=== PATIENT | female | born 1980 | race Caucasian/White ===

== ENCOUNTER 2019-02-12 19:36 | Inpatient (IN) | payer MEDICAID ==
[~2019-02-12] VITALS: Ht 160 cm; Wt 46.7 kg
[2019-02-13] MEDS ORDERED: LORazepam 2 MG TABLET PO PRN (00:45)
[2019-02-13] MEDS ORDERED: HALOPERIDOL 5 MG TABLET PO PRN (00:45)
[2019-02-13] MEDS ORDERED: ZOLPIDEM TARTRATE 10 MG TABLET PO PRN (00:45)
[2019-02-13 03:00] VITALS: BP 105/69
[2019-02-13] MEDS ORDERED: IBUPROFEN 400 MG TABLET PO PRN (05:15)
[2019-02-13] MEDS ORDERED: MAGNESIUM HYDROXIDE SUSPENSION 30 ML UDCUP PO PRN (05:15)
[2019-02-13] MEDS ORDERED: DOCUSATE SODIUM 100 MG CAPSULE PO PRN (05:15)
[2019-02-13] MEDS ORDERED: LOPERAMIDE HCL 2 MG CAPSULE PO PRN (05:15)
[2019-02-13] MEDS ORDERED: ALBUTEROL SULFATE HFA 90 MCG/PUFF 8 GM INHALER IH PRN (05:15)
[2019-02-13] MEDS ORDERED: ACETAMINOPHEN 325 MG TABLET PO PRN (05:15)
[2019-02-13] MEDS ORDERED: PETROLATUM,WHITE 28 GM JELLY TP PRN (05:15)
[2019-02-13] MEDS ORDERED: MAG HYDROX/AL HYDROX/SIMETH ES 30 ML SUSPENSION UDCUP PO PRN (05:15)
[2019-02-13] MEDS ORDERED: GuaiFENesin/D-METHORPHAN [SUGAR-FREE] 200-20MG/10 ML SYRUP UDCUP PO PRN (05:15)
[2019-02-13] MEDS ORDERED: ONDANSETRON HCL 4 MG TABLET PO PRN (05:15)
[2019-02-13] MEDS ORDERED: CloNIDine HCL 0.1 MG TABLET PO PRN (05:15)
[2019-02-13 16:42] VITALS: BP 116/60
[2019-02-13] MEDS: RisperiDONE 0.5 MG TABLET PO SCH (17:00)
[2019-02-14 06:09] VITALS: BP 103/64
[2019-02-14] MEDS: RisperiDONE 0.5 MG TABLET PO SCH ×2 (08:05→16:24)
[2019-02-14 16:06] VITALS: BP 100/82
[2019-02-15 06:14] VITALS: BP 106/72
[2019-02-15] MEDS: RisperiDONE 0.5 MG TABLET PO SCH ×2 (08:22→17:21)
[2019-02-15 08:25] VITALS: BP 123/79
[2019-02-15 08:43] LABS: APPEARANCE,URINE TURBID (CLEAR); GLUCOSE, URINE (UA) NEGATIVE (NEGATIVE); KETONES,URINE 15 mg/dL (NEGATIVE); NITRATE,URINE POSITIVE (NEGATIVE); PH,URINE 5.5 (5.0-8.0); PROTEIN,URINE POS 1+ (NEGATIVE); UROBILINOGEN,URINE 0.2 mg/dL (<=1.0)
[2019-02-15 08:46] LABS: AMPHET/METH SCREEN,URINE NEGATIVE (NEGATIVE); BARBITURATE SCREEN, URINE NEGATIVE (NEGATIVE); BENZODIAZEPINES SCREEN,URINE NEGATIVE (NEGATIVE); CANNABINOID SCREEN,URINE NEGATIVE (NEGATIVE); COCAINE SCREEN,URINE NEGATIVE (NEGATIVE); METHADONE SCREEN, URINE NEGATIVE (NEGATIVE); OPIATE SCREEN,URINE NEGATIVE (NEGATIVE)
[2019-02-15 08:47] LABS: PHENCYCLIDINE SCREEN,URINE NEGATIVE (NEGATIVE)
[2019-02-15 08:56] LABS: ALANINE AMINOTRANSFERASE 13 U/L (12-78); ALBUMIN 3.9 g/dL (3.4-5.0); ALKALINE PHOSPHATASE 52 U/L (46-116); ANION GAP 12 mmol/L (8-16); ASPARTATE AMINOTRANSFERASE 6 U/L (15-37); BILIRUBIN,TOTAL 0.8 mg/dL (0.1-1.0); CALCIUM, TOTAL 9.5 mg/dL (8.8-10.5); CARBON DIOXIDE 24 mmol/L (22-29); CHLORIDE 101 mmol/L (98-107); CHOL/HDL RATIO 3.9 (3.9-5.7); CHOLESTEROL 186 mg/dL (131-200); GLOMERULAR FILTR. RATE CALC > 60 mL/min (>60); GLUCOSE,RANDOM 69 mg/dL (70-110); HDL CHOLESTEROL 48 mg/dL (40-60); LDL CHOL (CALC.) 120 mg/dL (0-130); POTASSIUM 4.2 mmol/L (3.5-5.1); SODIUM SERUM 137 mmol/L (136-145); THYROID STIMULATING HORMONE 1.27 uIU/mL (0.36-3.74); TOTAL PROTEIN, SERUM 7.3 g/dL (6.4-8.2); TRIGLYCERIDES 92 mg/dL (15-150); UREA NITROGEN, BLOOD 13 mg/dL (7-18)
[2019-02-15 09:01] LABS: BILIRUBIN,URINE PRELIM. POSITIVE (NEGATIVE); LEUKOCYTE ESTERASE ,URINE MODERATE (NEGATIVE); OCCULT BLOOD,URINE SMALL (NEGATIVE)
[2019-02-15 09:03] LABS: AMORPHOUS SEDIMENT,UR Moderate /LPF (None Seen); BACTERIA,URINE Many /HPF (None Seen); CALCIUM OXALATE CRYSTALS,UR Few /LPF (None Seen); SQUAMOUS EPITHELIAL CELL,UR Many /LPF (None Seen)
[2019-02-15 09:04] LABS: BASOPHILS % (AUTO) 0.8 % (0.0-2.0); EOSINOPHILS % (AUTO) 1.6 % (1.0-6.0); HEMATOCRIT 37.6 % (36-46); HEMOGLOBIN 12.4 g/dL (12.0-16.0); LYMPHOCYTES % (AUTO) 38.3 % (22.0-44.0); MEAN CORPUSCULAR HEMOGLOBIN 29.1 pg (26.0-34.0); MEAN CORPUSCULAR VOLUME 88 fL (80-100); MONOCYTES # (AUTO) 0.4 K/uL (0.1-1.0); MONOCYTES % (AUTO) 7.7 % (2.0-9.0); NEUTROPHILS # (AUTO) 2.6 K/uL (1.8-7.7); NEUTROPHILS % (AUTO) 51.6 % (40.0-70.0); PLATELET COUNT (AUTO) 170 K/uL (150-450); RED BLOOD CELL COUNT(AUTO) 4.27 MIL/uL (4.00-5.20); RED CELL DISTRIBUTION WIDTH 14.5 % (11.5-14.5)
[2019-02-15 16:39] VITALS: BP 105/66
[2019-02-15] MEDS: CIPROFLOXACIN HCL 500 MG TABLET PO SCH (17:21)
[2019-02-16] MEDS: RisperiDONE 0.5 MG TABLET PO SCH ×2 (08:28→16:33)
[2019-02-16] MEDS: CIPROFLOXACIN HCL 500 MG TABLET PO SCH ×2 (08:28→16:33)
[2019-02-16 08:30] LABS: BASOPHILS % (AUTO) 0.6 % (0.0-2.0); EOSINOPHILS % (AUTO) 1.9 % (1.0-6.0); HEMOGLOBIN 11.6 g/dL (12.0-16.0); LYMPHOCYTES # (AUTO) 1.1 K/uL (1.0-4.8); LYMPHOCYTES % (AUTO) 31.2 % (22.0-44.0); MEAN CORPUSCULAR HEMOGLOBIN 28.8 pg (26.0-34.0); MEAN CORPUSCULAR HGB CONC 33.2 G/dL (31.0-37.0); MEAN CORPUSCULAR VOLUME 87 fL (80-100); MONOCYTES # (AUTO) 0.3 K/uL (0.1-1.0); MONOCYTES % (AUTO) 8.7 % (2.0-9.0); NEUTROPHILS # (AUTO) 2.1 K/uL (1.8-7.7); NEUTROPHILS % (AUTO) 57.6 % (40.0-70.0); PLATELET COUNT (AUTO) 172 K/uL (150-450); RED BLOOD CELL COUNT(AUTO) 4.04 MIL/uL (4.00-5.20); RED CELL DISTRIBUTION WIDTH 14.4 % (11.5-14.5)
[2019-02-16 08:37] VITALS: BP 106/69
[2019-02-16 09:24] LABS: ALANINE AMINOTRANSFERASE 13 U/L (12-78); ALBUMIN 3.7 g/dL (3.4-5.0); ALKALINE PHOSPHATASE 47 U/L (46-116); ANION GAP 10 mmol/L (8-16); ASPARTATE AMINOTRANSFERASE 13 U/L (15-37); BILIRUBIN,TOTAL 0.7 mg/dL (0.1-1.0); CALCIUM, TOTAL 9.2 mg/dL (8.8-10.5); CARBON DIOXIDE 26 mmol/L (22-29); CHLORIDE 103 mmol/L (98-107); CHOLESTEROL 179 mg/dL (131-200); CREATININE 0.83 mg/dL (0.60-1.30); GLOMERULAR FILTR. RATE CALC > 60 mL/min (>60); GLUCOSE,RANDOM 70 mg/dL (70-110); HCG,QUANTITATIVE < 1 mIU/mL (0-6); HDL CHOLESTEROL 45 mg/dL (40-60); LDL CHOL (CALC.) 121 mg/dL (0-130); POTASSIUM 4.4 mmol/L (3.5-5.1); SODIUM SERUM 139 mmol/L (136-145); THYROID STIMULATING HORMONE 0.86 uIU/mL (0.36-3.74); TOTAL PROTEIN, SERUM 6.7 g/dL (6.4-8.2); TRIGLYCERIDES 63 mg/dL (15-150); UREA NITROGEN, BLOOD 14 mg/dL (7-18)
[2019-02-16] MEDS ORDERED: ACETAMINOPHEN 1000 MG/ISO-OSM 100 ML IV ONE (13:30)
[2019-02-16] MEDS ORDERED: KETAMINE HCL 50 MG/ML 10 ML VIAL ONE (13:30)
[2019-02-16 17:47] VITALS: BP 100/70
[2019-02-17 06:52] VITALS: BP 110/72
[2019-02-17 08:11] VITALS: BP 105/65
[2019-02-17] MEDS: CIPROFLOXACIN HCL 500 MG TABLET PO SCH ×2 (08:35→18:09)
[2019-02-17] MEDS: RisperiDONE 0.5 MG TABLET PO SCH ×2 (08:35→18:09)
[2019-02-17 17:31] VITALS: BP 94/57
[2019-02-18 06:57] VITALS: BP 99/72
[2019-02-18 08:21] VITALS: BP 105/58
[2019-02-18] MEDS: CIPROFLOXACIN HCL 500 MG TABLET PO SCH ×2 (09:00→16:49)
[2019-02-18] MEDS: RisperiDONE 0.5 MG TABLET PO SCH ×2 (09:00→16:49)
[2019-02-18 16:12] VITALS: BP 101/68
[2019-02-19 06:54] VITALS: BP 97/71
[2019-02-19 08:12] VITALS: BP 100/60
[2019-02-19] MEDS: CIPROFLOXACIN HCL 500 MG TABLET PO SCH (08:35)
[2019-02-19] MEDS: RisperiDONE 0.5 MG TABLET PO SCH (08:35)
[2019-02-19] MEDS ORDERED: RISP.5 PO (11:52)
[2019-02-19] MEDS ORDERED: CIPR-278 PO (14:35)
[2019-02-19] MEDS ORDERED: RISP1 PO (14:36)
[2019-02-19] MEDS ORDERED: RisperiDONE 1 MG TABLET PO SCH (17:00)
== END 2019-02-19 16:00 | disposition home or self-care (01) | DRG 751 ==
LOC: EMS 19:39 → B3A 02-13 01:28
PROVIDERS: ADMIT Psychiatry & Neurology Psychiatry; ATTEND Psychiatry & Neurology Psychiatry
DX: F29 Unspecified psychosis not due to a substance or known physiological condition (principal); R45.850 Homicidal ideations; F41.9 Anxiety disorder, unspecified; J30.9 Allergic rhinitis, unspecified; N39.0 Urinary tract infection, site not specified; R00.0 Tachycardia, unspecified; R09.81 Nasal congestion
CPT/HCPCS: 70551; 80307; 84443; 87086; J0131; J3490

== ENCOUNTER 2020-12-24 15:44 | Inpatient (IN) | payer MEDICAID, OTHER ==
[~2020-12-24] VITALS: Ht 165.1 cm; Wt 33.6 kg
[~2020-12-24 15:44] MED LIST: CIPR-278 PO; RISP1TAB48 PO
[2020-12-24 17:21] LABS: COVID AG,FIA SOURCE NASOPHARYNGEAL
[2020-12-24 17:53] LABS: APPEARANCE,URINE CLEAR (CLEAR); BILIRUBIN,URINE NEGATIVE (NEGATIVE); GLUCOSE, URINE (UA) NEGATIVE (NEGATIVE); KETONES,URINE TRACE mg/dL (NEGATIVE); LEUKOCYTE ESTERASE ,URINE SMALL (NEGATIVE); NITRATE,URINE NEGATIVE (NEGATIVE); OCCULT BLOOD,URINE NEGATIVE (NEGATIVE); PROTEIN,URINE TRACE (NEGATIVE); UROBILINOGEN,URINE 0.2 mg/dL (<=1.0)
[2020-12-24 17:59] LABS: AMPHET/METH SCREEN,URINE NEGATIVE (NEGATIVE); BARBITURATE SCREEN, URINE NEGATIVE (NEGATIVE); BENZODIAZEPINES SCREEN,URINE NEGATIVE (NEGATIVE); CANNABINOID SCREEN,URINE NEGATIVE (NEGATIVE); COCAINE SCREEN,URINE NEGATIVE (NEGATIVE); METHADONE SCREEN, URINE NEGATIVE (NEGATIVE); OPIATE SCREEN,URINE NEGATIVE (NEGATIVE)
[2020-12-24 18:02] LABS: PHENCYCLIDINE SCREEN,URINE NEGATIVE (NEGATIVE)
[2020-12-24 18:03] LABS: BASOPHILS % (AUTO) 0.6 % (0.0-2.0); EOSINOPHILS % (AUTO) 0.6 % (1.0-6.0); HEMATOCRIT 38.7 % (36-46); HEMOGLOBIN 12.6 g/dL (12.0-16.0); LYMPHOCYTES % (AUTO) 18.4 % (22.0-44.0); MEAN CORPUSCULAR HEMOGLOBIN 28.1 pg (26.0-34.0); MEAN CORPUSCULAR HGB CONC 32.5 G/dL (31.0-37.0); MEAN CORPUSCULAR VOLUME 86 fL (80-100); MONOCYTES # (AUTO) 0.3 K/uL (0.1-1.0); MONOCYTES % (AUTO) 5.7 % (2.0-9.0); NEUTROPHILS % (AUTO) 74.7 % (40.0-70.0); PLATELET COUNT (AUTO) 193 K/uL (150-450); RED BLOOD CELL COUNT(AUTO) 4.48 MIL/uL (4.00-5.20); RED CELL DISTRIBUTION WIDTH 17.3 % (11.5-14.5)
[2020-12-24 18:07] LABS: ANION GAP 9 mmol/L (8-16); CALCIUM, TOTAL 10.2 mg/dL (8.8-10.5); CARBON DIOXIDE 34 mmol/L (22-29); CHLORIDE 99 mmol/L (98-107); CREATININE 0.98 mg/dL (0.60-1.30); GLOMERULAR FILTR. RATE CALC > 60 mL/min (>60); GLUCOSE,RANDOM 104 mg/dL (70-110); POTASSIUM 4.6 mmol/L (3.5-5.1); SODIUM SERUM 142 mmol/L (136-145); UREA NITROGEN, BLOOD 52 mg/dL (7-18)
[2020-12-24 18:20] LABS: BACTERIA,URINE Few /HPF (None Seen); RBC,URINE 0-2 /HPF (0-2); SQUAMOUS EPITHELIAL CELL,UR Few /LPF (None Seen)
[2020-12-24 18:20] LABS: ALANINE AMINOTRANSFERASE 38 U/L (12-78); ALBUMIN 4.3 g/dL (3.4-5.0); ALKALINE PHOSPHATASE 43 U/L (46-116); ASPARTATE AMINOTRANSFERASE 28 U/L (15-37); BILIRUBIN,TOTAL 0.4 mg/dL (0.1-1.0); HCG,QUANTITATIVE < 1 mIU/mL (0-6); TOTAL PROTEIN, SERUM 7.6 g/dL (6.4-8.2)
[2020-12-24] MEDS ORDERED: ZOLPIDEM TARTRATE 10 MG TABLET PO PRN (18:45)
[2020-12-24] MEDS ORDERED: HALOPERIDOL 5 MG TABLET PO PRN (18:45)
[2020-12-24] MEDS ORDERED: LORazepam 2 MG TABLET PO PRN (18:45)
[2020-12-24] MEDS ORDERED: SULFAMETHOX/TRIMETH DS 800-160 MG/TABLET PO ONE (18:45)
[2020-12-24 20:15] VITALS: BP 94/54
[2020-12-25] MEDS ORDERED: ONDANSETRON HCL 4 MG TABLET PO PRN (07:45)
[2020-12-25] MEDS ORDERED: IBUPROFEN 400 MG TABLET PO PRN (07:45)
[2020-12-25] MEDS ORDERED: PETROLATUM,WHITE 28 GM JELLY TP PRN (07:45)
[2020-12-25] MEDS ORDERED: ALBUTEROL SULFATE HFA 90 MCG/PUFF 8 GM INHALER IH PRN (07:45)
[2020-12-25] MEDS ORDERED: CloNIDine HCL 0.1 MG TABLET PO PRN (07:45)
[2020-12-25] MEDS ORDERED: NICOTINE 14 MG/24 HOUR PATCH TD PRN (07:45)
[2020-12-25] MEDS ORDERED: LOPERAMIDE HCL 2 MG CAPSULE PO PRN (07:45)
[2020-12-25] MEDS ORDERED: MAG HYDROX/AL HYDROX/SIMETH ES 30 ML SUSPENSION UDCUP PO PRN (07:45)
[2020-12-25] MEDS ORDERED: DOCUSATE SODIUM 100 MG CAPSULE PO PRN (07:45)
[2020-12-25] MEDS ORDERED: MAGNESIUM HYDROXIDE SUSPENSION 30 ML UDCUP PO PRN (07:45)
[2020-12-25] MEDS ORDERED: GuaiFENesin/D-METHORPHAN [SUGAR-FREE] 200-20MG/10 ML SYRUP UDCUP PO PRN (07:45)
[2020-12-25] MEDS ORDERED: ACETAMINOPHEN 325 MG TABLET PO PRN (07:45)
[2020-12-25 08:08] LABS: CHOL/HDL RATIO 2.6 (3.9-5.7)
[2020-12-25] MEDS: CIPROFLOXACIN HCL 250 MG TABLET PO SCH (08:09)
[2020-12-25] MEDS: SULFAMETHOX/TRIMETH DS 800-160 MG/TABLET PO SCH ×2 (08:09→16:26)
[2020-12-25 16:00] VITALS: BP 90/67
[2020-12-25] MEDS: RisperiDONE 1 MG TABLET PO SCH (16:26)
[2020-12-26 07:47] LABS: MAGNESIUM 2.6 mg/dL (1.80-2.40); PHOSPHORUS 4.1 mg/dL (2.5-4.9)
[2020-12-26] MEDS ORDERED: MULTIVITAMINS WITH MINERALS, THERAPEUTIC TABLET PO SCH (09:00)
[2020-12-26] MEDS: SULFAMETHOX/TRIMETH DS 800-160 MG/TABLET PO SCH ×2 (09:23→16:22)
[2020-12-26 09:24] VITALS: BP 87/57
[2020-12-26] MEDS: RisperiDONE 1 MG TABLET PO SCH ×2 (09:24→16:22)
[2020-12-26] MEDS: CIPROFLOXACIN HCL 250 MG TABLET PO SCH (09:24)
[2020-12-26] MEDS: THIAMINE 100 MG TABLET PO SCH (09:24)
[2020-12-26 16:00] VITALS: BP 74/51
[2020-12-27] MEDS: CIPROFLOXACIN HCL 250 MG TABLET PO SCH (08:01)
[2020-12-27] MEDS: SULFAMETHOX/TRIMETH DS 800-160 MG/TABLET PO SCH ×2 (08:01→16:38)
[2020-12-27] MEDS: RisperiDONE 1 MG TABLET PO SCH ×2 (08:01→16:38)
[2020-12-27] MEDS: THIAMINE 100 MG TABLET PO SCH (08:01)
[2020-12-27] MEDS: MULTIVITAMINS WITH MINERALS, THERAPEUTIC TABLET PO SCH (08:02)
[2020-12-27] MEDS: SERTRALINE HCL 50 MG TABLET PO SCH (08:02)
[2020-12-27 09:00] VITALS: BP 97/68
[2020-12-27 16:30] VITALS: BP 90/52
[2020-12-28 08:45] VITALS: BP 91/51
[2020-12-28] MEDS: SULFAMETHOX/TRIMETH DS 800-160 MG/TABLET PO SCH ×2 (08:51→16:01)
[2020-12-28] MEDS: RisperiDONE 1 MG TABLET PO SCH ×2 (08:51→16:01)
[2020-12-28] MEDS: THIAMINE 100 MG TABLET PO SCH (08:51)
[2020-12-28] MEDS: MULTIVITAMINS WITH MINERALS, THERAPEUTIC TABLET PO SCH (08:51)
[2020-12-28] MEDS: SERTRALINE HCL 50 MG TABLET PO SCH (08:51)
[2020-12-28] MEDS: CIPROFLOXACIN HCL 250 MG TABLET PO SCH (08:51)
[2020-12-28 16:07] VITALS: BP 84/57
[2020-12-29 08:15] VITALS: BP 90/58
[2020-12-29] MEDS: RisperiDONE 1 MG TABLET PO SCH ×2 (09:10→16:06)
[2020-12-29] MEDS: SERTRALINE HCL 50 MG TABLET PO SCH (09:10)
[2020-12-29] MEDS: CIPROFLOXACIN HCL 250 MG TABLET PO SCH (09:10)
[2020-12-29] MEDS: SULFAMETHOX/TRIMETH DS 800-160 MG/TABLET PO SCH ×2 (09:10→16:06)
[2020-12-29] MEDS: THIAMINE 100 MG TABLET PO SCH (09:10)
[2020-12-29] MEDS: MULTIVITAMINS WITH MINERALS, THERAPEUTIC TABLET PO SCH (09:10)
[2020-12-29 16:00] VITALS: BP 88/71
[2020-12-30 08:00] VITALS: BP 101/60
[2020-12-30] MEDS: RisperiDONE 1 MG TABLET PO SCH ×2 (09:04→16:26)
[2020-12-30] MEDS: CIPROFLOXACIN HCL 250 MG TABLET PO SCH (09:04)
[2020-12-30] MEDS: SERTRALINE HCL 50 MG TABLET PO SCH (09:04)
[2020-12-30] MEDS: THIAMINE 100 MG TABLET PO SCH (09:04)
[2020-12-30] MEDS: MULTIVITAMINS WITH MINERALS, THERAPEUTIC TABLET PO SCH (09:04)
[2020-12-30 14:32] LABS: COVID AG,FIA SOURCE NASOPHARYNGEAL
[2020-12-30 16:00] VITALS: BP 110/69
[2020-12-31 08:37] VITALS: BP 139/106
[2020-12-31] MEDS: OMEGA-3/DHA/EPA/FISH OIL 1,000 MG CAPSULE PO SCH (08:47)
[2020-12-31] MEDS: THIAMINE 100 MG TABLET PO SCH (08:47)
[2020-12-31] MEDS: RisperiDONE 1 MG TABLET PO SCH ×2 (08:47→16:27)
[2020-12-31] MEDS: MULTIVITAMINS WITH MINERALS, THERAPEUTIC TABLET PO SCH (08:47)
[2020-12-31] MEDS: SERTRALINE HCL 50 MG TABLET PO SCH (08:47)
[2020-12-31] MEDS: FOLIC ACID 1 MG TABLET PO SCH (08:47)
[2020-12-31 16:00] VITALS: BP 99/58
[2021-01-01] MEDS: RisperiDONE 1 MG TABLET PO SCH ×2 (08:33→16:04)
[2021-01-01] MEDS: SERTRALINE HCL 50 MG TABLET PO SCH (08:33)
[2021-01-01] MEDS: THIAMINE 100 MG TABLET PO SCH (08:33)
[2021-01-01] MEDS: MULTIVITAMINS WITH MINERALS, THERAPEUTIC TABLET PO SCH (08:33)
[2021-01-01] MEDS: FOLIC ACID 1 MG TABLET PO SCH (08:33)
[2021-01-01] MEDS: OMEGA-3/DHA/EPA/FISH OIL 1,000 MG CAPSULE PO SCH (08:33)
[2021-01-01 09:00] VITALS: BP 85/57
[2021-01-01 12:50] VITALS: BP 88/61
[2021-01-01 16:52] VITALS: BP 90/75
[2021-01-02] MEDS: SERTRALINE HCL 50 MG TABLET PO SCH (09:57)
[2021-01-02] MEDS: FOLIC ACID 1 MG TABLET PO SCH (09:57)
[2021-01-02] MEDS: THIAMINE 100 MG TABLET PO SCH (09:57)
[2021-01-02] MEDS: OMEGA-3/DHA/EPA/FISH OIL 1,000 MG CAPSULE PO SCH (09:57)
[2021-01-02] MEDS: RisperiDONE 1 MG TABLET PO SCH ×2 (09:57→17:03)
[2021-01-02] MEDS: MULTIVITAMINS WITH MINERALS, THERAPEUTIC TABLET PO SCH (09:57)
[2021-01-02 16:00] VITALS: BP 87/64
[2021-01-03] MEDS: THIAMINE 100 MG TABLET PO SCH (08:47)
[2021-01-03] MEDS: OMEGA-3/DHA/EPA/FISH OIL 1,000 MG CAPSULE PO SCH (08:47)
[2021-01-03] MEDS: FOLIC ACID 1 MG TABLET PO SCH (08:47)
[2021-01-03] MEDS: SERTRALINE HCL 50 MG TABLET PO SCH (08:47)
[2021-01-03] MEDS: MULTIVITAMINS WITH MINERALS, THERAPEUTIC TABLET PO SCH (08:47)
[2021-01-03] MEDS: RisperiDONE 1 MG TABLET PO SCH ×2 (08:47→16:06)
[2021-01-03 16:00] VITALS: BP 100/50
[2021-01-04] MEDS: RisperiDONE 1 MG TABLET PO SCH ×2 (08:35→16:54)
[2021-01-04] MEDS: THIAMINE 100 MG TABLET PO SCH (08:35)
[2021-01-04] MEDS: MULTIVITAMINS WITH MINERALS, THERAPEUTIC TABLET PO SCH (08:35)
[2021-01-04] MEDS: SERTRALINE HCL 50 MG TABLET PO SCH (08:35)
[2021-01-04] MEDS: FOLIC ACID 1 MG TABLET PO SCH (08:35)
[2021-01-04] MEDS: OMEGA-3/DHA/EPA/FISH OIL 1,000 MG CAPSULE PO SCH (08:35)
[2021-01-04 16:00] VITALS: BP 97/72
[2021-01-05 08:02] VITALS: BP 118/94
[2021-01-05] MEDS: MULTIVITAMINS WITH MINERALS, THERAPEUTIC TABLET PO SCH (09:18)
[2021-01-05] MEDS: FOLIC ACID 1 MG TABLET PO SCH (09:18)
[2021-01-05] MEDS: OMEGA-3/DHA/EPA/FISH OIL 1,000 MG CAPSULE PO SCH (09:18)
[2021-01-05] MEDS: RisperiDONE 1 MG TABLET PO SCH ×2 (09:19→16:09)
[2021-01-05] MEDS: SERTRALINE HCL 50 MG TABLET PO SCH (09:19)
[2021-01-05 16:00] VITALS: BP 83/51
[2021-01-06 08:28] VITALS: BP 87/55
[2021-01-06] MEDS: OMEGA-3/DHA/EPA/FISH OIL 1,000 MG CAPSULE PO SCH (11:00)
[2021-01-06] MEDS: FOLIC ACID 1 MG TABLET PO SCH (11:00)
[2021-01-06] MEDS: RisperiDONE 1 MG TABLET PO SCH (11:00)
[2021-01-06] MEDS: SERTRALINE HCL 50 MG TABLET PO SCH ×2 (11:00→16:00)
[2021-01-06] MEDS: MULTIVITAMINS WITH MINERALS, THERAPEUTIC TABLET PO SCH (11:00)
[2021-01-06 14:06] LABS: COVID AG,FIA SOURCE NASOPHARYNGEAL
[2021-01-06] MEDS: RisperiDONE 2 MG TABLET PO SCH (16:00)
[2021-01-06 16:24] VITALS: BP 90/65
[2021-01-07 08:00] VITALS: BP 117/69
[2021-01-07] MEDS: FOLIC ACID 1 MG TABLET PO SCH (08:43)
[2021-01-07] MEDS: RisperiDONE 2 MG TABLET PO SCH ×2 (08:43→16:14)
[2021-01-07] MEDS: MULTIVITAMINS WITH MINERALS, THERAPEUTIC TABLET PO SCH (08:43)
[2021-01-07] MEDS: SERTRALINE HCL 50 MG TABLET PO SCH ×2 (08:43→16:14)
[2021-01-07] MEDS: OMEGA-3/DHA/EPA/FISH OIL 1,000 MG CAPSULE PO SCH (08:43)
[2021-01-07 16:07] VITALS: BP 90/78
[2021-01-08 07:47] LABS: ANION GAP 7 mmol/L (8-16); CARBON DIOXIDE 31 mmol/L (22-29); CHLORIDE 105 mmol/L (98-107); CREATININE 0.98 mg/dL (0.60-1.30); GLOMERULAR FILTR. RATE CALC > 60 mL/min (>60); GLUCOSE,RANDOM 81 mg/dL (70-110); POTASSIUM 4.6 mmol/L (3.5-5.1); SODIUM SERUM 143 mmol/L (136-145); UREA NITROGEN, BLOOD 26 mg/dL (7-18)
[2021-01-08 08:00] VITALS: BP 98/62
[2021-01-08] MEDS: SERTRALINE HCL 50 MG TABLET PO SCH ×2 (08:50→16:06)
[2021-01-08] MEDS: RisperiDONE 2 MG TABLET PO SCH ×2 (08:51→16:06)
[2021-01-08] MEDS: MULTIVITAMINS WITH MINERALS, THERAPEUTIC TABLET PO SCH (08:51)
[2021-01-08] MEDS: OMEGA-3/DHA/EPA/FISH OIL 1,000 MG CAPSULE PO SCH (08:51)
[2021-01-08] MEDS: FOLIC ACID 1 MG TABLET PO SCH (08:51)
[2021-01-08 16:00] VITALS: BP 80/51
[2021-01-09 08:00] VITALS: BP 95/57
[2021-01-09] MEDS: SERTRALINE HCL 50 MG TABLET PO SCH ×2 (09:36→16:52)
[2021-01-09] MEDS: FOLIC ACID 1 MG TABLET PO SCH (09:36)
[2021-01-09] MEDS: RisperiDONE 2 MG TABLET PO SCH ×2 (09:36→16:52)
[2021-01-09] MEDS: MULTIVITAMINS WITH MINERALS, THERAPEUTIC TABLET PO SCH (09:36)
[2021-01-09] MEDS: OMEGA-3/DHA/EPA/FISH OIL 1,000 MG CAPSULE PO SCH (09:36)
[2021-01-09 16:00] VITALS: BP 77/58
[2021-01-10 08:13] VITALS: BP 111/76
[2021-01-10] MEDS: OMEGA-3/DHA/EPA/FISH OIL 1,000 MG CAPSULE PO SCH (08:20)
[2021-01-10] MEDS: MULTIVITAMINS WITH MINERALS, THERAPEUTIC TABLET PO SCH (08:20)
[2021-01-10] MEDS: FOLIC ACID 1 MG TABLET PO SCH (08:20)
[2021-01-10] MEDS: SERTRALINE HCL 50 MG TABLET PO SCH ×2 (08:20→16:24)
[2021-01-10] MEDS: RisperiDONE 2 MG TABLET PO SCH ×2 (08:20→16:24)
[2021-01-10] MEDS: MEGESTROL ACETATE 400 MG/10 ML SUSPENSION UDCUP PO SCH (09:00)
[2021-01-11 08:21] VITALS: BP 129/91
[2021-01-11] MEDS: FOLIC ACID 1 MG TABLET PO SCH (08:24)
[2021-01-11] MEDS: RisperiDONE 2 MG TABLET PO SCH ×2 (08:24→16:13)
[2021-01-11] MEDS: SERTRALINE HCL 50 MG TABLET PO SCH ×2 (08:24→16:14)
[2021-01-11] MEDS: OMEGA-3/DHA/EPA/FISH OIL 1,000 MG CAPSULE PO SCH (08:24)
[2021-01-11] MEDS: MULTIVITAMINS WITH MINERALS, THERAPEUTIC TABLET PO SCH (08:24)
[2021-01-11] MEDS: MEGESTROL ACETATE 400 MG/10 ML SUSPENSION UDCUP PO SCH ×2 (08:25→09:00)
[2021-01-11 16:09] VITALS: BP 114/71
[2021-01-12 08:11] VITALS: BP 79/52
[2021-01-12] MEDS: MULTIVITAMINS WITH MINERALS, THERAPEUTIC TABLET PO SCH (08:45)
[2021-01-12] MEDS: RisperiDONE 2 MG TABLET PO SCH ×2 (08:45→16:09)
[2021-01-12] MEDS: OMEGA-3/DHA/EPA/FISH OIL 1,000 MG CAPSULE PO SCH (08:45)
[2021-01-12] MEDS: SERTRALINE HCL 50 MG TABLET PO SCH ×2 (08:45→16:09)
[2021-01-12] MEDS: FOLIC ACID 1 MG TABLET PO SCH (08:45)
[2021-01-12] MEDS: MEGESTROL ACETATE 400 MG/10 ML SUSPENSION UDCUP PO SCH (08:54)
[2021-01-12 15:49] LABS: BASOPHILS % (AUTO) 0.6 % (0.0-2.0); EOSINOPHILS % (AUTO) 0.2 % (1.0-6.0); HEMATOCRIT 45.7 % (36-46); HEMOGLOBIN 14.6 g/dL (12.0-16.0); LYMPHOCYTES # (AUTO) 1.7 K/uL (1.0-4.8); MEAN CORPUSCULAR HEMOGLOBIN 28.7 pg (26.0-34.0); MEAN CORPUSCULAR VOLUME 90 fL (80-100); MONOCYTES # (AUTO) 0.6 K/uL (0.1-1.0); MONOCYTES % (AUTO) 7.5 % (2.0-9.0); NEUTROPHILS # (AUTO) 5.1 K/uL (1.8-7.7); NEUTROPHILS % (AUTO) 68.7 % (40.0-70.0); RED CELL DISTRIBUTION WIDTH 18.8 % (11.5-14.5)
[2021-01-12 15:53] LABS: ANION GAP 11 mmol/L (8-16); CALCIUM, TOTAL 10.2 mg/dL (8.8-10.5); CARBON DIOXIDE 28 mmol/L (22-29); CHLORIDE 102 mmol/L (98-107); CREATININE 0.99 mg/dL (0.60-1.30); GLOMERULAR FILTR. RATE CALC > 60 mL/min (>60); GLUCOSE,RANDOM 105 mg/dL (70-110); POTASSIUM 4.2 mmol/L (3.5-5.1); SODIUM SERUM 141 mmol/L (136-145); UREA NITROGEN, BLOOD 27 mg/dL (7-18)
[2021-01-12 16:01] LABS: ALANINE AMINOTRANSFERASE 41 U/L (12-78); ALBUMIN 4.9 g/dL (3.4-5.0); ALKALINE PHOSPHATASE 52 U/L (46-116); ASPARTATE AMINOTRANSFERASE 24 U/L (15-37); BILIRUBIN,TOTAL 0.4 mg/dL (0.1-1.0); TOTAL PROTEIN, SERUM 8.4 g/dL (6.4-8.2)
[2021-01-12 16:07] VITALS: BP 126/67
[2021-01-12 16:30] LABS: PLATELET COUNT (AUTO) 163 K/uL (150-450)
[2021-01-13 08:00] VITALS: BP 98/56
[2021-01-13] MEDS: MEGESTROL ACETATE 400 MG/10 ML SUSPENSION UDCUP PO SCH (09:00)
[2021-01-13] MEDS: OMEGA-3/DHA/EPA/FISH OIL 1,000 MG CAPSULE PO SCH (09:04)
[2021-01-13] MEDS: SERTRALINE HCL 50 MG TABLET PO SCH ×2 (09:04→16:13)
[2021-01-13] MEDS: RisperiDONE 2 MG TABLET PO SCH ×2 (09:04→16:13)
[2021-01-13] MEDS: FOLIC ACID 1 MG TABLET PO SCH (09:04)
[2021-01-13] MEDS: MULTIVITAMINS WITH MINERALS, THERAPEUTIC TABLET PO SCH (09:04)
[2021-01-13 12:30] LABS: COVID AG,FIA SOURCE NASOPHARYNGEAL
[2021-01-13 16:00] VITALS: BP 95/58
[2021-01-14 00:12] VITALS: BP 96/64
[2021-01-14 08:00] VITALS: BP 101/48
[2021-01-14] MEDS: MEGESTROL ACETATE 400 MG/10 ML SUSPENSION UDCUP PO SCH (09:00)
[2021-01-14] MEDS: MULTIVITAMINS WITH MINERALS, THERAPEUTIC TABLET PO SCH (09:20)
[2021-01-14] MEDS: FOLIC ACID 1 MG TABLET PO SCH (09:21)
[2021-01-14] MEDS: SERTRALINE HCL 50 MG TABLET PO SCH ×2 (09:21→16:16)
[2021-01-14] MEDS: RisperiDONE 2 MG TABLET PO SCH ×2 (09:21→16:16)
[2021-01-14] MEDS: OMEGA-3/DHA/EPA/FISH OIL 1,000 MG CAPSULE PO SCH (09:21)
[2021-01-14 16:00] VITALS: BP 94/60
[2021-01-14] MEDS: OLANZapine 10 MG TABLET PO SCH (20:35)
[2021-01-15 08:29] VITALS: BP 86/62
[2021-01-15] MEDS: FOLIC ACID 1 MG TABLET PO SCH (09:00)
[2021-01-15] MEDS: RisperiDONE 2 MG TABLET PO SCH ×2 (09:00→16:07)
[2021-01-15] MEDS: SERTRALINE HCL 50 MG TABLET PO SCH ×2 (09:00→16:07)
[2021-01-15] MEDS: OMEGA-3/DHA/EPA/FISH OIL 1,000 MG CAPSULE PO SCH (09:00)
[2021-01-15] MEDS: MEGESTROL ACETATE 400 MG/10 ML SUSPENSION UDCUP PO SCH (09:00)
[2021-01-15] MEDS: MULTIVITAMINS WITH MINERALS, THERAPEUTIC TABLET PO SCH (09:00)
[2021-01-15 16:09] VITALS: BP 89/57
[2021-01-15] MEDS: OLANZapine 10 MG TABLET PO SCH (20:57)
[2021-01-16] MEDS: OMEGA-3/DHA/EPA/FISH OIL 1,000 MG CAPSULE PO SCH (09:00)
[2021-01-16] MEDS: RisperiDONE 2 MG TABLET PO SCH ×2 (09:00→18:18)
[2021-01-16] MEDS: MULTIVITAMINS WITH MINERALS, THERAPEUTIC TABLET PO SCH (09:00)
[2021-01-16] MEDS: FOLIC ACID 1 MG TABLET PO SCH (09:00)
[2021-01-16] MEDS: MEGESTROL ACETATE 400 MG/10 ML SUSPENSION UDCUP PO SCH (09:00)
[2021-01-16 09:39] VITALS: BP 80/53
[2021-01-16] MEDS: SERTRALINE HCL 100 MG TABLET PO SCH (18:18)
[2021-01-16] MEDS: OLANZapine 10 MG TABLET PO SCH (20:39)
[2021-01-17 08:49] VITALS: BP 106/57
[2021-01-17] MEDS: MEGESTROL ACETATE 400 MG/10 ML SUSPENSION UDCUP PO SCH (09:00)
[2021-01-17] MEDS: SERTRALINE HCL 100 MG TABLET PO SCH ×2 (11:01→16:39)
[2021-01-17] MEDS: RisperiDONE 2 MG TABLET PO SCH (11:01)
[2021-01-17] MEDS: OMEGA-3/DHA/EPA/FISH OIL 1,000 MG CAPSULE PO SCH (11:01)
[2021-01-17] MEDS: MULTIVITAMINS WITH MINERALS, THERAPEUTIC TABLET PO SCH (11:01)
[2021-01-17] MEDS: FOLIC ACID 1 MG TABLET PO SCH (11:02)
[2021-01-17] MEDS: RisperiDONE CONC 2 MG/2 ML SOLUTION ORAL.SYG PO SCH (20:43)
[2021-01-17] MEDS: OLANZapine 10 MG RAPDIS TABLET PO SCH (20:44)
[2021-01-18] MEDS: RisperiDONE CONC 2 MG/2 ML SOLUTION ORAL.SYG PO SCH ×2 (09:00→21:03)
[2021-01-18] MEDS: MEGESTROL ACETATE 400 MG/10 ML SUSPENSION UDCUP PO SCH (09:00)
[2021-01-18 09:41] VITALS: BP 105/69
[2021-01-18] MEDS: SERTRALINE HCL 100 MG TABLET PO SCH ×2 (12:28→16:35)
[2021-01-18] MEDS: FOLIC ACID 1 MG TABLET PO SCH (12:28)
[2021-01-18] MEDS: OMEGA-3/DHA/EPA/FISH OIL 1,000 MG CAPSULE PO SCH (12:28)
[2021-01-18] MEDS: MULTIVITAMINS WITH MINERALS, THERAPEUTIC TABLET PO SCH (12:28)
[2021-01-18 16:02] VITALS: BP 98/65
[2021-01-18] MEDS: OLANZapine 10 MG RAPDIS TABLET PO SCH (21:03)
[2021-01-19] MEDS: MEGESTROL ACETATE 400 MG/10 ML SUSPENSION UDCUP PO SCH (09:00)
[2021-01-19] MEDS: RisperiDONE CONC 2 MG/2 ML SOLUTION ORAL.SYG PO SCH ×2 (09:00→21:04)
[2021-01-19] MEDS: OMEGA-3/DHA/EPA/FISH OIL 1,000 MG CAPSULE PO SCH (09:33)
[2021-01-19] MEDS: MULTIVITAMINS WITH MINERALS, THERAPEUTIC TABLET PO SCH (09:33)
[2021-01-19] MEDS: FOLIC ACID 1 MG TABLET PO SCH (09:33)
[2021-01-19 09:34] VITALS: BP 91/62
[2021-01-19] MEDS: SERTRALINE HCL 100 MG TABLET PO SCH ×2 (09:36→16:33)
[2021-01-19 11:27] LABS: ANION GAP 11 mmol/L (8-16); CALCIUM, TOTAL 9.8 mg/dL (8.8-10.5); CARBON DIOXIDE 30 mmol/L (22-29); CHLORIDE 100 mmol/L (98-107); CREATININE 0.97 mg/dL (0.60-1.30); GLOMERULAR FILTR. RATE CALC > 60 mL/min (>60); GLUCOSE,RANDOM 91 mg/dL (70-110); PHOSPHORUS 3.6 mg/dL (2.5-4.9); POTASSIUM 3.8 mmol/L (3.5-5.1); SODIUM SERUM 141 mmol/L (136-145); UREA NITROGEN, BLOOD 21 mg/dL (7-18)
[2021-01-19 17:49] VITALS: BP 119/65
[2021-01-19] MEDS: OLANZapine 10 MG RAPDIS TABLET PO SCH (21:02)
[2021-01-20 08:00] VITALS: BP 90/60
[2021-01-20] MEDS: MEGESTROL ACETATE 400 MG/10 ML SUSPENSION UDCUP PO SCH (09:00)
[2021-01-20] MEDS: RisperiDONE CONC 2 MG/2 ML SOLUTION ORAL.SYG PO SCH (09:00)
[2021-01-20] MEDS: FOLIC ACID 1 MG TABLET PO SCH (09:16)
[2021-01-20] MEDS: SERTRALINE HCL 100 MG TABLET PO SCH ×2 (09:16→17:23)
[2021-01-20] MEDS: OMEGA-3/DHA/EPA/FISH OIL 1,000 MG CAPSULE PO SCH (09:16)
[2021-01-20] MEDS: MULTIVITAMINS WITH MINERALS, THERAPEUTIC TABLET PO SCH (09:16)
[2021-01-20 15:02] LABS: COVID AG,FIA SOURCE NASOPHARYNGEAL
[2021-01-20 16:00] VITALS: BP 105/71
[2021-01-20] MEDS: OLANZapine 10 MG RAPDIS TABLET PO SCH (21:21)
[2021-01-20] MEDS: RisperiDONE 2 MG TABLET PO SCH (21:21)
[2021-01-21 06:22] VITALS: BP 101/53
[2021-01-21 08:00] VITALS: BP 96/73
[2021-01-21] MEDS: MEGESTROL ACETATE 40 MG TABLET PO SCH ×3 (09:00→09:32)
[2021-01-21] MEDS: SERTRALINE HCL 100 MG TABLET PO SCH ×2 (09:07→16:39)
[2021-01-21] MEDS: FOLIC ACID 1 MG TABLET PO SCH (09:07)
[2021-01-21] MEDS: RisperiDONE 2 MG TABLET PO SCH ×2 (09:08→20:48)
[2021-01-21] MEDS: MULTIVITAMINS WITH MINERALS, THERAPEUTIC TABLET PO SCH (09:08)
[2021-01-21] MEDS: OMEGA-3/DHA/EPA/FISH OIL 1,000 MG CAPSULE PO SCH (09:08)
[2021-01-21] MEDS: LEVOFLOXACIN 750 MG TABLET PO SCH (13:20)
[2021-01-21 18:01] VITALS: BP 95/58
[2021-01-21] MEDS: OLANZapine 10 MG RAPDIS TABLET PO SCH (20:48)
[2021-01-22 05:58] LABS: BASOPHILS % (AUTO) 1.1 % (0.0-2.0); EOSINOPHILS % (AUTO) 1.2 % (1.0-6.0); HEMATOCRIT 38.4 % (36-46); HEMOGLOBIN 12.6 g/dL (12.0-16.0); LYMPHOCYTES % (AUTO) 35.2 % (22.0-44.0); MEAN CORPUSCULAR HEMOGLOBIN 29.5 pg (26.0-34.0); MEAN CORPUSCULAR HGB CONC 32.8 G/dL (31.0-37.0); MEAN CORPUSCULAR VOLUME 90 fL (80-100); MONOCYTES # (AUTO) 0.3 K/uL (0.1-1.0); MONOCYTES % (AUTO) 8.8 % (2.0-9.0); NEUTROPHILS # (AUTO) 1.5 K/uL (1.8-7.7); NEUTROPHILS % (AUTO) 53.7 % (40.0-70.0); PLATELET COUNT (AUTO) 133 K/uL (150-450); RED BLOOD CELL COUNT(AUTO) 4.26 MIL/uL (4.00-5.20); RED CELL DISTRIBUTION WIDTH 18.5 % (11.5-14.5)
[2021-01-22 06:44] LABS: ANION GAP 9 mmol/L (8-16); CALCIUM, TOTAL 9.8 mg/dL (8.8-10.5); CARBON DIOXIDE 29 mmol/L (22-29); CHLORIDE 103 mmol/L (98-107); CREATININE 0.93 mg/dL (0.60-1.30); GLOMERULAR FILTR. RATE CALC > 60 mL/min (>60); GLUCOSE,RANDOM 80 mg/dL (70-110); POTASSIUM 4.1 mmol/L (3.5-5.1); SODIUM SERUM 141 mmol/L (136-145); UREA NITROGEN, BLOOD 19 mg/dL (7-18)
[2021-01-22] MEDS: SERTRALINE HCL 100 MG TABLET PO SCH ×2 (08:24→16:49)
[2021-01-22] MEDS: OMEGA-3/DHA/EPA/FISH OIL 1,000 MG CAPSULE PO SCH (08:24)
[2021-01-22] MEDS: RisperiDONE 2 MG TABLET PO SCH ×2 (08:24→21:00)
[2021-01-22] MEDS: MULTIVITAMINS WITH MINERALS, THERAPEUTIC TABLET PO SCH (08:24)
[2021-01-22] MEDS: FOLIC ACID 1 MG TABLET PO SCH (08:24)
[2021-01-22] MEDS: MEGESTROL ACETATE 40 MG TABLET PO SCH (08:25)
[2021-01-22] MEDS: LEVOFLOXACIN 750 MG TABLET PO SCH (08:25)
[2021-01-22 09:26] VITALS: BP 90/56
[2021-01-22 16:17] VITALS: BP 117/71
[2021-01-22] MEDS: OLANZapine 10 MG RAPDIS TABLET PO SCH (21:00)
[2021-01-23 08:29] VITALS: BP 88/48
[2021-01-23] MEDS: LEVOFLOXACIN 750 MG TABLET PO SCH (10:54)
[2021-01-23] MEDS: MEGESTROL ACETATE 40 MG TABLET PO SCH (10:54)
[2021-01-23] MEDS: MULTIVITAMINS WITH MINERALS, THERAPEUTIC TABLET PO SCH (10:56)
[2021-01-23] MEDS: OMEGA-3/DHA/EPA/FISH OIL 1,000 MG CAPSULE PO SCH (10:56)
[2021-01-23] MEDS: SERTRALINE HCL 100 MG TABLET PO SCH ×2 (10:56→16:33)
[2021-01-23] MEDS: RisperiDONE 2 MG TABLET PO SCH ×2 (10:56→20:35)
[2021-01-23] MEDS: FOLIC ACID 1 MG TABLET PO SCH (10:56)
[2021-01-23 16:38] VITALS: BP 86/56
[2021-01-23] MEDS: OLANZapine 10 MG RAPDIS TABLET PO SCH (20:37)
[2021-01-24 08:00] VITALS: BP 136/61
[2021-01-24] MEDS: MEGESTROL ACETATE 40 MG TABLET PO SCH (10:14)
[2021-01-24] MEDS: MULTIVITAMINS WITH MINERALS, THERAPEUTIC TABLET PO SCH (10:15)
[2021-01-24] MEDS: SERTRALINE HCL 100 MG TABLET PO SCH ×2 (10:15→17:06)
[2021-01-24] MEDS: RisperiDONE 2 MG TABLET PO SCH ×2 (10:15→21:25)
[2021-01-24] MEDS: OMEGA-3/DHA/EPA/FISH OIL 1,000 MG CAPSULE PO SCH (10:15)
[2021-01-24] MEDS: LEVOFLOXACIN 750 MG TABLET PO SCH (10:15)
[2021-01-24] MEDS: FOLIC ACID 1 MG TABLET PO SCH (10:15)
[2021-01-24 16:07] VITALS: BP 96/52
[2021-01-24] MEDS: OLANZapine 10 MG RAPDIS TABLET PO SCH (21:00)
[2021-01-25 08:00] VITALS: BP 105/74
[2021-01-25] MEDS: LEVOFLOXACIN 750 MG TABLET PO SCH (09:29)
[2021-01-25] MEDS: FOLIC ACID 1 MG TABLET PO SCH (09:29)
[2021-01-25] MEDS: OMEGA-3/DHA/EPA/FISH OIL 1,000 MG CAPSULE PO SCH (09:29)
[2021-01-25] MEDS: RisperiDONE 2 MG TABLET PO SCH ×2 (09:29→20:01)
[2021-01-25] MEDS: MULTIVITAMINS WITH MINERALS, THERAPEUTIC TABLET PO SCH (09:29)
[2021-01-25] MEDS: SERTRALINE HCL 100 MG TABLET PO SCH ×2 (09:29→16:16)
[2021-01-25] MEDS: MEGESTROL ACETATE 40 MG TABLET PO SCH (09:29)
[2021-01-25 16:00] VITALS: BP 104/69
[2021-01-25] MEDS: OLANZapine 10 MG RAPDIS TABLET PO SCH (20:03)
[2021-01-26 08:23] VITALS: BP 114/70
[2021-01-26] MEDS: MEGESTROL ACETATE 40 MG TABLET PO SCH (09:40)
[2021-01-26] MEDS: SERTRALINE HCL 100 MG TABLET PO SCH ×2 (09:41→16:51)
[2021-01-26] MEDS: FOLIC ACID 1 MG TABLET PO SCH (09:41)
[2021-01-26] MEDS: LEVOFLOXACIN 750 MG TABLET PO SCH (09:41)
[2021-01-26] MEDS: MULTIVITAMINS WITH MINERALS, THERAPEUTIC TABLET PO SCH (09:41)
[2021-01-26] MEDS: OMEGA-3/DHA/EPA/FISH OIL 1,000 MG CAPSULE PO SCH (09:41)
[2021-01-26] MEDS: RisperiDONE 2 MG TABLET PO SCH ×2 (09:41→21:51)
[2021-01-26 16:00] VITALS: BP 87/51
[2021-01-26] MEDS: OLANZapine 10 MG RAPDIS TABLET PO SCH (21:00)
[2021-01-27 08:00] VITALS: BP 97/55
[2021-01-27] MEDS: MEGESTROL ACETATE 40 MG TABLET PO SCH (09:21)
[2021-01-27] MEDS: LEVOFLOXACIN 750 MG TABLET PO SCH (09:21)
[2021-01-27] MEDS: RisperiDONE 2 MG TABLET PO SCH ×2 (09:21→21:00)
[2021-01-27] MEDS: OMEGA-3/DHA/EPA/FISH OIL 1,000 MG CAPSULE PO SCH (09:21)
[2021-01-27] MEDS: MULTIVITAMINS WITH MINERALS, THERAPEUTIC TABLET PO SCH (09:21)
[2021-01-27] MEDS: SERTRALINE HCL 100 MG TABLET PO SCH ×2 (09:21→16:59)
[2021-01-27] MEDS: FOLIC ACID 1 MG TABLET PO SCH (09:21)
[2021-01-27 14:56] LABS: COVID AG,FIA SOURCE NASOPHARYNGEAL
[2021-01-27 16:00] VITALS: BP 73/52
[2021-01-27] MEDS: OLANZapine 10 MG RAPDIS TABLET PO SCH (21:00)
[2021-01-28 07:04] LABS: MAGNESIUM 2.3 mg/dL (1.80-2.40); PHOSPHORUS 3.2 mg/dL (2.5-4.9)
[2021-01-28 08:09] VITALS: BP 116/78
[2021-01-28] MEDS: OMEGA-3/DHA/EPA/FISH OIL 1,000 MG CAPSULE PO SCH (08:31)
[2021-01-28] MEDS: FOLIC ACID 1 MG TABLET PO SCH (08:32)
[2021-01-28] MEDS: SERTRALINE HCL 100 MG TABLET PO SCH (08:32)
[2021-01-28] MEDS: RisperiDONE 2 MG TABLET PO SCH (08:32)
[2021-01-28] MEDS: MULTIVITAMINS WITH MINERALS, THERAPEUTIC TABLET PO SCH (08:32)
[2021-01-28] MEDS: MEGESTROL ACETATE 40 MG TABLET PO SCH (08:34)
[2021-01-28] MEDS: LEVOFLOXACIN 750 MG TABLET PO SCH (08:35)
[2021-01-28] MEDS ORDERED: OLAN10TA3 PO (13:14)
[2021-01-28] MEDS ORDERED: OMEG-135 PO (13:14)
[2021-01-28] MEDS ORDERED: MEGE40TA8 PO (13:14)
[2021-01-28] MEDS ORDERED: FOLI-130 PO (13:14)
[2021-01-28] MEDS ORDERED: MULT-1239 PO (13:14)
[2021-01-28] MEDS ORDERED: LEVO750T68 PO (13:14)
[2021-01-28] MEDS ORDERED: SERT-162 PO (13:14)
== END 2021-01-28 14:30 | disposition home or self-care (01) | DRG 750 ==
LOC: EMS 15:44 → 3EI 19:00
PROVIDERS: ADMIT Psychiatry & Neurology Child & Adolescent Psychiatry; ATTEND Psychiatry & Neurology Child & Adolescent Psychiatry
DX: F20.0 Paranoid schizophrenia (principal); N39.0 Urinary tract infection, site not specified; E43 Unspecified severe protein-calorie malnutrition; I95.9 Hypotension, unspecified; Z68.1 Body mass index [BMI] 19.9 or less, adult; Z88.0 Allergy status to penicillin; Z59.0 Homelessness; Z91.19 Patient's noncompliance with other medical treatment and regimen
CPT/HCPCS: 83735; 84100; 87086; 87426; 99285; A9575; G0480

== ENCOUNTER 2021-10-19 12:57 | Inpatient (IN) | payer MEDICAID, OTHER ==
[~2021-10-19] VITALS: Ht 167.6 cm; Wt 48.0 kg
[~2021-10-19 12:57] MED LIST changes: -CIPR-278 PO; +FOLI-130 PO; +LEVO750T68 PO; +MEGE40TA8 PO; +MULT-1239 PO; +OLAN10TA74 PO; +OMEG-135 PO; +SERT-162 PO
[2021-10-19] MEDS ORDERED: SODIUM CHLORIDE 0.9% 1,000 ML IV ONE (13:45)
[2021-10-19 13:50] LABS: BASOPHILS % (AUTO) 0.2 % (0.0-2.0); EOSINOPHILS % (AUTO) 0.1 % (1.0-6.0); HEMATOCRIT 42.7 % (36-46); LYMPHOCYTES # (AUTO) 0.4 K/uL (1.0-4.8); LYMPHOCYTES % (AUTO) 6.7 % (22.0-44.0); MEAN CORPUSCULAR HEMOGLOBIN 28.1 pg (26.0-34.0); MEAN CORPUSCULAR HGB CONC 32.9 G/dL (31.0-37.0); MEAN CORPUSCULAR VOLUME 86 fL (80-100); MONOCYTES # (AUTO) 0.2 K/uL (0.1-1.0); MONOCYTES % (AUTO) 3.7 % (2.0-9.0); NEUTROPHILS # (AUTO) 4.9 K/uL (1.8-7.7); PLATELET COUNT (AUTO) 166 K/uL (150-450); RED BLOOD CELL COUNT(AUTO) 4.99 MIL/uL (4.00-5.20); RED CELL DISTRIBUTION WIDTH 15.5 % (11.5-14.5)
[2021-10-19 13:56] LABS: NEUTROPHILS % (AUTO) 89.3 % (40.0-70.0)
[2021-10-19 14:00] LABS: ANION GAP 20 mmol/L (8-16); CARBON DIOXIDE 19 mmol/L (22-29); CHLORIDE 103 mmol/L (98-107); CREATININE 1.61 mg/dL (0.60-1.30); GLOMERULAR FILTR. RATE CALC 35 mL/min (>60); GLUCOSE,RANDOM 154 mg/dL (70-110); POTASSIUM 3.8 mmol/L (3.5-5.1); SODIUM SERUM 142 mmol/L (136-145); UREA NITROGEN, BLOOD 31 mg/dL (7-18)
[2021-10-19 14:07] LABS: ALANINE AMINOTRANSFERASE 37 U/L (12-78); ALBUMIN 4.4 g/dL (3.4-5.0); ALKALINE PHOSPHATASE 71 U/L (46-116); ASPARTATE AMINOTRANSFERASE 45 U/L (15-37); BILIRUBIN,TOTAL 1.5 mg/dL (0.1-1.0); TOTAL PROTEIN, SERUM 7.8 g/dL (6.4-8.2)
[2021-10-19 14:09] LABS: ACETAMINOPHEN < 2 mcg/mL (10-30)
[2021-10-19 14:22] LABS: SALICYLATE 1.9 mg/dL (2.8-20.0)
[2021-10-19 15:36] LABS: CALCIUM, TOTAL 8.4 mg/dL (8.8-10.5); CREATININE 1.28 mg/dL (0.60-1.30); POTASSIUM 3.8 mmol/L (3.5-5.1)
[2021-10-19 17:08] LABS: AMPHET/METH SCREEN,URINE NEGATIVE (NEGATIVE); BARBITURATE SCREEN, URINE NEGATIVE (NEGATIVE); BENZODIAZEPINES SCREEN,URINE NEGATIVE (NEGATIVE); CANNABINOID SCREEN,URINE NEGATIVE (NEGATIVE); COCAINE SCREEN,URINE NEGATIVE (NEGATIVE); METHADONE SCREEN, URINE NEGATIVE (NEGATIVE); OPIATE SCREEN,URINE NEGATIVE (NEGATIVE)
[2021-10-19 17:10] LABS: PHENCYCLIDINE SCREEN,URINE NEGATIVE (NEGATIVE)
[2021-10-19 17:11] LABS: APPEARANCE,URINE CLOUDY (CLEAR); BILIRUBIN,URINE NEGATIVE (NEGATIVE); GLUCOSE, URINE (UA) NEGATIVE (NEGATIVE); KETONES,URINE 40 mg/dL (NEGATIVE); LEUKOCYTE ESTERASE ,URINE MODERATE (NEGATIVE); NITRATE,URINE NEGATIVE (NEGATIVE); OCCULT BLOOD,URINE TRACE (NEGATIVE); PH,URINE 5.5 (5.0-8.0); PROTEIN,URINE POS 1+ (NEGATIVE)
[2021-10-19 17:19] LABS: BACTERIA,URINE Few /HPF (None Seen); RBC,URINE 0-2 /HPF (0-2); SQUAMOUS EPITHELIAL CELL,UR Few /LPF (None Seen)
[2021-10-19] MEDS ORDERED: NITROFURANTOIN/NITROFURAN MAC 100 MG CAPSULE [MACROBID] PO ONE (17:30)
[2021-10-19] MEDS ORDERED: LORazepam 2 MG TABLET PO PRN (19:00)
[2021-10-19] MEDS ORDERED: OLANZapine 5 MG RAPDIS TABLET PO PRN (19:00)
[2021-10-19 20:58] LABS: CALCIUM, TOTAL 8.9 mg/dL (8.8-10.5); CREATININE 1.19 mg/dL (0.60-1.30); POTASSIUM 4.2 mmol/L (3.5-5.1)
[2021-10-19 21:28] LABS: COVID AG,FIA SOURCE NASOPHARYNGEAL
[2021-10-19] MEDS: ZOLPIDEM TARTRATE 10 MG TABLET PO PRN (23:21)
[2021-10-20 01:38] LABS: CHOL/HDL RATIO 5.3 (3.9-5.7)
[2021-10-20] MEDS ORDERED: SODIUM CHLORIDE 0.9% 1,000 ML ONE ×2 (05:36→06:13)
[2021-10-20] MEDS: ZOLPIDEM TARTRATE 10 MG TABLET PO PRN (06:33)
[2021-10-20] MEDS ORDERED: SODIUM CHLORIDE 0.9% 1,000 ML IV ONE (08:45)
[2021-10-21 08:35] VITALS: BP 106/61
[2021-10-21 16:00] VITALS: BP 104/70
[2021-10-21] MEDS ORDERED: ALBUTEROL SULFATE HFA 90 MCG/PUFF 8 GM INHALER IH PRN (16:00)
[2021-10-21] MEDS ORDERED: MAGNESIUM HYDROXIDE SUSPENSION 30 ML UDCUP PO PRN (16:00)
[2021-10-21] MEDS ORDERED: ACETAMINOPHEN 325 MG TABLET PO PRN (16:00)
[2021-10-21] MEDS ORDERED: PETROLATUM,WHITE 28 GM JELLY TP PRN (16:00)
[2021-10-21] MEDS ORDERED: CloNIDine HCL 0.1 MG TABLET PO PRN (16:00)
[2021-10-21] MEDS ORDERED: LOPERAMIDE HCL 2 MG CAPSULE PO PRN (16:00)
[2021-10-21] MEDS ORDERED: NICOTINE 14 MG/24 HOUR PATCH TD PRN (16:00)
[2021-10-21] MEDS ORDERED: ONDANSETRON HCL 4 MG TABLET PO PRN (16:00)
[2021-10-21] MEDS ORDERED: IBUPROFEN 400 MG TABLET PO PRN (16:00)
[2021-10-21] MEDS ORDERED: DOCUSATE SODIUM 100 MG CAPSULE PO PRN (16:00)
[2021-10-21] MEDS ORDERED: MAG HYDROX/AL HYDROX/SIMETH ES 30 ML SUSPENSION UDCUP PO PRN (16:00)
[2021-10-21] MEDS ORDERED: GuaiFENesin/D-METHORPHAN [SUGAR-FREE] 200-20MG/10 ML SYRUP UDCUP PO PRN (16:00)
[2021-10-21] MEDS: SERTRALINE HCL 100 MG TABLET PO SCH (16:06)
[2021-10-21 20:00] VITALS: BP 104/70
[2021-10-21] MEDS: RisperiDONE 1 MG TABLET PO SCH (20:08)
[2021-10-21] MEDS: OLANZapine 10 MG TABLET PO SCH (20:08)
[2021-10-22] MEDS: CEPHALEXIN MONOHYDRATE 500 MG CAPSULE PO SCH ×3 (08:37→16:06)
[2021-10-22] MEDS: RisperiDONE 1 MG TABLET PO SCH ×2 (08:38→20:11)
[2021-10-22] MEDS: SERTRALINE HCL 100 MG TABLET PO SCH ×2 (08:38→16:06)
[2021-10-22 08:40] VITALS: BP 119/60
[2021-10-22 16:41] VITALS: BP 90/62
[2021-10-22] MEDS: OLANZapine 10 MG TABLET PO SCH (20:11)
[2021-10-23 08:49] VITALS: BP 90/51
[2021-10-23] MEDS: RisperiDONE 1 MG TABLET PO SCH ×2 (11:15→20:16)
[2021-10-23] MEDS: CEPHALEXIN MONOHYDRATE 500 MG CAPSULE PO SCH ×3 (11:16→16:13)
[2021-10-23] MEDS: SERTRALINE HCL 100 MG TABLET PO SCH ×2 (11:16→16:13)
[2021-10-23 17:16] VITALS: BP 97/65
[2021-10-23] MEDS: OLANZapine 10 MG TABLET PO SCH (20:16)
[2021-10-24] MEDS: CEPHALEXIN MONOHYDRATE 500 MG CAPSULE PO SCH ×3 (08:44→16:21)
[2021-10-24] MEDS: SERTRALINE HCL 100 MG TABLET PO SCH ×2 (08:44→16:21)
[2021-10-24] MEDS: RisperiDONE 1 MG TABLET PO SCH ×3 (08:44→20:23)
[2021-10-24 08:55] VITALS: BP 93/60
[2021-10-24 16:38] VITALS: BP 90/68
[2021-10-24] MEDS: OLANZapine 10 MG TABLET PO SCH ×2 (20:19→20:23)
[2021-10-25 08:52] LABS: COVID AG,FIA SOURCE NASOPHARYNGEAL
[2021-10-25] MEDS: CEPHALEXIN MONOHYDRATE 500 MG CAPSULE PO SCH ×3 (09:02→16:32)
[2021-10-25] MEDS: RisperiDONE 1 MG TABLET PO SCH (09:02)
[2021-10-25] MEDS: SERTRALINE HCL 100 MG TABLET PO SCH ×2 (09:02→16:32)
[2021-10-25 09:34] VITALS: BP 108/72
[2021-10-25 16:21] VITALS: BP 110/58
[2021-10-25] MEDS: OLANZapine 10 MG RAPDIS TABLET PO SCH (21:00)
[2021-10-25] MEDS: RisperiDONE CONC 1 MG/ML SOLUTION ORAL.SYG PO SCH (21:00)
[2021-10-26] MEDS: CEPHALEXIN MONOHYDRATE 500 MG CAPSULE PO SCH ×3 (08:30→16:03)
[2021-10-26] MEDS: SERTRALINE HCL 100 MG TABLET PO SCH ×2 (08:30→16:03)
[2021-10-26] MEDS: RisperiDONE CONC 1 MG/ML SOLUTION ORAL.SYG PO SCH ×2 (08:31→08:41)
[2021-10-26] MEDS: RisperiDONE 1 MG TABLET PO SCH ×2 (09:54→20:15)
[2021-10-26 11:35] VITALS: BP 97/62
[2021-10-26 17:00] VITALS: BP 90/64
[2021-10-26] MEDS: OLANZapine 10 MG RAPDIS TABLET PO SCH (20:15)
[2021-10-27] MEDS: RisperiDONE 1 MG TABLET PO SCH ×2 (09:00→20:42)
[2021-10-27] MEDS: SERTRALINE HCL 100 MG TABLET PO SCH ×2 (09:00→16:59)
[2021-10-27 10:22] VITALS: BP 126/74
[2021-10-27 16:35] VITALS: BP 104/74
[2021-10-27] MEDS: OLANZapine 10 MG RAPDIS TABLET PO SCH (20:29)
[2021-10-28] MEDS: RisperiDONE 1 MG TABLET PO SCH ×2 (08:56→21:00)
[2021-10-28] MEDS: SERTRALINE HCL 100 MG TABLET PO SCH ×2 (08:56→16:28)
[2021-10-28 10:53] VITALS: BP 90/68
[2021-10-28 16:22] VITALS: BP 119/70
[2021-10-28] MEDS: OLANZapine 10 MG RAPDIS TABLET PO SCH (21:00)
[2021-10-29 08:00] VITALS: BP 87/59
[2021-10-29] MEDS: SERTRALINE HCL 100 MG TABLET PO SCH ×2 (10:13→17:11)
[2021-10-29] MEDS: RisperiDONE 1 MG TABLET PO SCH ×2 (10:13→20:55)
[2021-10-29 16:18] VITALS: BP 100/68
[2021-10-29] MEDS: OLANZapine 10 MG RAPDIS TABLET PO SCH (20:58)
[2021-10-30] MEDS: SERTRALINE HCL 100 MG TABLET PO SCH ×2 (09:36→16:51)
[2021-10-30 09:37] VITALS: BP 92/54
[2021-10-30] MEDS: RisperiDONE 1 MG TABLET PO SCH ×2 (09:37→21:00)
[2021-10-30 16:18] VITALS: BP 102/71
[2021-10-30] MEDS: OLANZapine 10 MG RAPDIS TABLET PO SCH (21:00)
[2021-10-31] MEDS: SERTRALINE HCL 100 MG TABLET PO SCH ×2 (08:38→17:00)
[2021-10-31] MEDS: RisperiDONE 1 MG TABLET PO SCH ×2 (08:38→21:00)
[2021-10-31 09:38] VITALS: BP 98/59
[2021-10-31 16:31] VITALS: BP 96/60
[2021-10-31] MEDS: OLANZapine 10 MG RAPDIS TABLET PO SCH (21:00)
[2021-11-01] MEDS: SERTRALINE HCL 100 MG TABLET PO SCH ×2 (08:19→16:30)
[2021-11-01] MEDS: RisperiDONE 1 MG TABLET PO SCH ×2 (08:19→20:30)
[2021-11-01 09:34] VITALS: BP 93/63
[2021-11-01 10:20] LABS: COVID AG,FIA SOURCE NASOPHARYNGEAL
[2021-11-01 16:00] VITALS: BP 92/60
[2021-11-01] MEDS: OLANZapine 10 MG RAPDIS TABLET PO SCH (20:30)
[2021-11-02] MEDS: RisperiDONE 1 MG TABLET PO SCH ×2 (08:55→20:47)
[2021-11-02] MEDS: SERTRALINE HCL 100 MG TABLET PO SCH ×2 (08:55→16:52)
[2021-11-02 09:07] VITALS: BP 105/63
[2021-11-02 16:25] VITALS: BP 91/60
[2021-11-02] MEDS: OLANZapine 10 MG RAPDIS TABLET PO SCH (20:47)
[2021-11-03 07:37] LABS: PHOSPHORUS 3.8 mg/dL (2.5-4.9); SODIUM SERUM 147 mmol/L (136-145)
[2021-11-03 07:46] LABS: POTASSIUM 2.2 mmol/L (3.5-5.1)
[2021-11-03 08:25] LABS: ANION GAP 4 mmol/L (8-16); CARBON DIOXIDE 34 mmol/L (22-29); CHLORIDE 109 mmol/L (98-107); CREATININE 0.85 mg/dL (0.60-1.30); GLOMERULAR FILTR. RATE CALC > 60 mL/min (>60); GLUCOSE,RANDOM 77 mg/dL (70-110); UREA NITROGEN, BLOOD 25 mg/dL (7-18)
[2021-11-03] MEDS ORDERED: POTASSIUM CHLORIDE 20 MEQ ER TABLET PO ONE ×2 (09:15→16:00)
[2021-11-03] MEDS: RisperiDONE 1 MG TABLET PO SCH ×2 (09:56→20:55)
[2021-11-03] MEDS: MULTIVITAMINS WITH MINERALS, THERAPEUTIC TABLET PO SCH (09:56)
[2021-11-03] MEDS: THIAMINE 100 MG TABLET PO SCH (09:57)
[2021-11-03] MEDS: SERTRALINE HCL 100 MG TABLET PO SCH ×2 (09:57→16:17)
[2021-11-03 15:43] LABS: ANION GAP 5 mmol/L (8-16); CALCIUM, TOTAL 9.3 mg/dL (8.8-10.5); CARBON DIOXIDE 33 mmol/L (22-29); CHLORIDE 109 mmol/L (98-107); GLOMERULAR FILTR. RATE CALC > 60 mL/min (>60); GLUCOSE,RANDOM 90 mg/dL (70-110); SODIUM SERUM 147 mmol/L (136-145); UREA NITROGEN, BLOOD 26 mg/dL (7-18)
[2021-11-03 15:45] LABS: POTASSIUM 2.8 mmol/L (3.5-5.1)
[2021-11-03 16:19] VITALS: BP 85/58
[2021-11-03] MEDS: OLANZapine 10 MG RAPDIS TABLET PO SCH (20:55)
[2021-11-04 08:00] VITALS: BP 99/55
[2021-11-04] MEDS: RisperiDONE 1 MG TABLET PO SCH ×2 (08:53→21:00)
[2021-11-04] MEDS: THIAMINE 100 MG TABLET PO SCH (08:53)
[2021-11-04] MEDS: MULTIVITAMINS WITH MINERALS, THERAPEUTIC TABLET PO SCH (08:53)
[2021-11-04] MEDS: SERTRALINE HCL 100 MG TABLET PO SCH ×2 (08:53→16:40)
[2021-11-04 16:39] VITALS: BP 92/68
[2021-11-04] MEDS: OLANZapine 10 MG RAPDIS TABLET PO SCH (21:00)
[2021-11-05 08:07] VITALS: BP 92/61
[2021-11-05] MEDS: RisperiDONE 1 MG TABLET PO SCH ×2 (10:08→20:57)
[2021-11-05] MEDS: SERTRALINE HCL 100 MG TABLET PO SCH ×2 (10:08→16:33)
[2021-11-05] MEDS: MULTIVITAMINS WITH MINERALS, THERAPEUTIC TABLET PO SCH (10:08)
[2021-11-05] MEDS: THIAMINE 100 MG TABLET PO SCH (10:08)
[2021-11-05 16:00] VITALS: BP 91/55
[2021-11-05] MEDS: OLANZapine 10 MG RAPDIS TABLET PO SCH (20:59)
[2021-11-06 08:12] VITALS: BP 102/53
[2021-11-06] MEDS: RisperiDONE 1 MG TABLET PO SCH ×2 (10:47→20:39)
[2021-11-06] MEDS: SERTRALINE HCL 100 MG TABLET PO SCH ×2 (10:47→16:50)
[2021-11-06] MEDS: THIAMINE 100 MG TABLET PO SCH (10:47)
[2021-11-06] MEDS: MULTIVITAMINS WITH MINERALS, THERAPEUTIC TABLET PO SCH (10:47)
[2021-11-06 16:40] VITALS: BP 99/57
[2021-11-06] MEDS: OLANZapine 10 MG RAPDIS TABLET PO SCH (20:39)
[2021-11-07] MEDS: THIAMINE 100 MG TABLET PO SCH (08:35)
[2021-11-07] MEDS: SERTRALINE HCL 100 MG TABLET PO SCH ×2 (08:35→16:30)
[2021-11-07] MEDS: MULTIVITAMINS WITH MINERALS, THERAPEUTIC TABLET PO SCH (08:35)
[2021-11-07] MEDS: RisperiDONE 1 MG TABLET PO SCH ×2 (08:35→20:31)
[2021-11-07 09:06] VITALS: BP 94/56
[2021-11-07 16:00] VITALS: BP 92/55
[2021-11-07] MEDS: OLANZapine 10 MG RAPDIS TABLET PO SCH (20:31)
[2021-11-08 08:00] VITALS: BP 110/76
[2021-11-08] MEDS: MULTIVITAMINS WITH MINERALS, THERAPEUTIC TABLET PO SCH (08:35)
[2021-11-08] MEDS: RisperiDONE 1 MG TABLET PO SCH ×2 (08:35→20:46)
[2021-11-08] MEDS: SERTRALINE HCL 100 MG TABLET PO SCH ×2 (08:35→17:35)
[2021-11-08] MEDS: THIAMINE 100 MG TABLET PO SCH (08:35)
[2021-11-08 08:42] LABS: COVID AG,FIA SOURCE NASAL SWAB
[2021-11-08 16:40] VITALS: BP 115/72
[2021-11-08] MEDS: OLANZapine 10 MG RAPDIS TABLET PO SCH (20:47)
[2021-11-09 08:15] VITALS: BP 118/64
[2021-11-09] MEDS: RisperiDONE 1 MG TABLET PO SCH ×2 (09:54→21:00)
[2021-11-09] MEDS: MULTIVITAMINS WITH MINERALS, THERAPEUTIC TABLET PO SCH (09:54)
[2021-11-09] MEDS: SERTRALINE HCL 100 MG TABLET PO SCH ×2 (09:55→17:00)
[2021-11-09] MEDS: THIAMINE 100 MG TABLET PO SCH (09:55)
[2021-11-09 16:00] VITALS: BP 113/60
[2021-11-09] MEDS: OLANZapine 10 MG RAPDIS TABLET PO SCH (21:24)
[2021-11-10] MEDS: RisperiDONE 1 MG TABLET PO SCH ×3 (09:43→20:57)
[2021-11-10] MEDS: THIAMINE 100 MG TABLET PO SCH (09:43)
[2021-11-10] MEDS: MULTIVITAMINS WITH MINERALS, THERAPEUTIC TABLET PO SCH (09:43)
[2021-11-10] MEDS: SERTRALINE HCL 100 MG TABLET PO SCH ×2 (09:43→16:07)
[2021-11-10 13:13] VITALS: BP 110/64
[2021-11-10 16:00] VITALS: BP 102/59
[2021-11-10] MEDS: OLANZapine 10 MG RAPDIS TABLET PO SCH (20:13)
[2021-11-11 09:03] VITALS: BP 102/58
[2021-11-11] MEDS: RisperiDONE 1 MG TABLET PO SCH ×2 (10:41→20:47)
[2021-11-11] MEDS: MULTIVITAMINS WITH MINERALS, THERAPEUTIC TABLET PO SCH (10:41)
[2021-11-11] MEDS: SERTRALINE HCL 100 MG TABLET PO SCH ×2 (10:41→16:02)
[2021-11-11] MEDS: THIAMINE 100 MG TABLET PO SCH (10:41)
[2021-11-11 16:00] VITALS: BP 103/54
[2021-11-11] MEDS: OLANZapine 10 MG RAPDIS TABLET PO SCH (20:46)
[2021-11-12 08:40] VITALS: BP 107/69
[2021-11-12] MEDS: MULTIVITAMINS WITH MINERALS, THERAPEUTIC TABLET PO SCH (08:51)
[2021-11-12] MEDS: THIAMINE 100 MG TABLET PO SCH (08:52)
[2021-11-12] MEDS: RisperiDONE 1 MG TABLET PO SCH ×2 (08:53→20:42)
[2021-11-12] MEDS: SERTRALINE HCL 100 MG TABLET PO SCH ×2 (08:53→16:41)
[2021-11-12 16:21] VITALS: BP 109/74
[2021-11-12] MEDS: OLANZapine 10 MG RAPDIS TABLET PO SCH (20:45)
[2021-11-13 06:18] LABS: BASOPHILS % (AUTO) 0.9 % (0.0-2.0); EOSINOPHILS % (AUTO) 2.2 % (1.0-6.0); HEMATOCRIT 34.1 % (36-46); HEMOGLOBIN 11.1 g/dL (12.0-16.0); LYMPHOCYTES # (AUTO) 1.1 K/uL (1.0-4.8); LYMPHOCYTES % (AUTO) 33.1 % (22.0-44.0); MEAN CORPUSCULAR HEMOGLOBIN 28.4 pg (26.0-34.0); MEAN CORPUSCULAR HGB CONC 32.6 G/dL (31.0-37.0); MEAN CORPUSCULAR VOLUME 87 fL (80-100); MONOCYTES # (AUTO) 0.2 K/uL (0.1-1.0); MONOCYTES % (AUTO) 7.3 % (2.0-9.0); NEUTROPHILS # (AUTO) 1.9 K/uL (1.8-7.7); NEUTROPHILS % (AUTO) 56.5 % (40.0-70.0); PLATELET COUNT (AUTO) 173 K/uL (150-450); RED BLOOD CELL COUNT(AUTO) 3.92 MIL/uL (4.00-5.20); RED CELL DISTRIBUTION WIDTH 17.4 % (11.5-14.5)
[2021-11-13 06:36] LABS: ANION GAP 2 mmol/L (8-16); CALCIUM, TOTAL 9.1 mg/dL (8.8-10.5); CARBON DIOXIDE 36 mmol/L (22-29); CHLORIDE 115 mmol/L (98-107); CREATININE 0.83 mg/dL (0.60-1.30); GLOMERULAR FILTR. RATE CALC > 60 mL/min (>60); GLUCOSE,RANDOM 79 mg/dL (70-110); POTASSIUM 3.5 mmol/L (3.5-5.1); SODIUM SERUM 153 mmol/L (136-145); UREA NITROGEN, BLOOD 18 mg/dL (7-18)
[2021-11-13 08:10] VITALS: BP 105/56
[2021-11-13] MEDS: SERTRALINE HCL 100 MG TABLET PO SCH ×2 (08:40→17:10)
[2021-11-13] MEDS: MULTIVITAMINS WITH MINERALS, THERAPEUTIC TABLET PO SCH (08:40)
[2021-11-13] MEDS: RisperiDONE 1 MG TABLET PO SCH ×2 (08:40→21:00)
[2021-11-13] MEDS: THIAMINE 100 MG TABLET PO SCH (08:40)
[2021-11-13 16:00] VITALS: BP 99/69
[2021-11-13] MEDS: FERROUS SULFATE 325 MG EC TABLET PO SCH (17:10)
[2021-11-13] MEDS: OLANZapine 10 MG RAPDIS TABLET PO SCH (21:00)
[2021-11-14] MEDS: FERROUS SULFATE 325 MG EC TABLET PO SCH ×3 (07:00→16:44)
[2021-11-14] MEDS: OMEGA-3/DHA/EPA/FISH OIL 1,000 MG CAPSULE PO SCH (09:22)
[2021-11-14] MEDS: RisperiDONE 1 MG TABLET PO SCH ×2 (09:23→20:29)
[2021-11-14] MEDS: THIAMINE 100 MG TABLET PO SCH (09:23)
[2021-11-14] MEDS: MULTIVITAMINS WITH MINERALS, THERAPEUTIC TABLET PO SCH (09:23)
[2021-11-14] MEDS: SERTRALINE HCL 100 MG TABLET PO SCH ×2 (09:23→16:44)
[2021-11-14] MEDS: LEVOFLOXACIN 500 MG TABLET PO SCH (09:24)
[2021-11-14 10:25] VITALS: BP 99/69
[2021-11-14 10:25] LABS: MAGNESIUM 2.8 mg/dL (1.80-2.40); PHOSPHORUS 3.8 mg/dL (2.5-4.9)
[2021-11-14 16:20] VITALS: BP 108/65
[2021-11-14] MEDS: OLANZapine 10 MG RAPDIS TABLET PO SCH (20:38)
[2021-11-15] MEDS: FERROUS SULFATE 325 MG EC TABLET PO SCH ×3 (06:39→16:26)
[2021-11-15] MEDS: THIAMINE 100 MG TABLET PO SCH (10:41)
[2021-11-15] MEDS: RisperiDONE 1 MG TABLET PO SCH ×2 (10:41→20:32)
[2021-11-15] MEDS: SERTRALINE HCL 100 MG TABLET PO SCH ×2 (10:41→16:26)
[2021-11-15] MEDS: MULTIVITAMINS WITH MINERALS, THERAPEUTIC TABLET PO SCH (10:41)
[2021-11-15] MEDS: LEVOFLOXACIN 500 MG TABLET PO SCH (10:41)
[2021-11-15] MEDS: OMEGA-3/DHA/EPA/FISH OIL 1,000 MG CAPSULE PO SCH (10:41)
[2021-11-15 10:52] VITALS: BP 98/60
[2021-11-15 13:09] LABS: COVID AG,FIA SOURCE NASOPHARYNGEAL
[2021-11-15 16:00] VITALS: BP 104/79
[2021-11-15] MEDS: OLANZapine 10 MG RAPDIS TABLET PO SCH (20:32)
[2021-11-16] MEDS: FERROUS SULFATE 325 MG EC TABLET PO SCH ×3 (06:46→17:30)
[2021-11-16 09:12] VITALS: BP 101/73
[2021-11-16] MEDS: LEVOFLOXACIN 500 MG TABLET PO SCH (09:55)
[2021-11-16] MEDS: OMEGA-3/DHA/EPA/FISH OIL 1,000 MG CAPSULE PO SCH (09:56)
[2021-11-16] MEDS: MULTIVITAMINS WITH MINERALS, THERAPEUTIC TABLET PO SCH (09:56)
[2021-11-16] MEDS: THIAMINE 100 MG TABLET PO SCH (09:56)
[2021-11-16] MEDS: SERTRALINE HCL 100 MG TABLET PO SCH ×2 (09:56→16:17)
[2021-11-16] MEDS: RisperiDONE 1 MG TABLET PO SCH ×2 (09:56→21:00)
[2021-11-16] MEDS: OLANZapine 5 MG RAPDIS TABLET PO SCH (10:52)
[2021-11-16 12:32] LABS: ANION GAP 4 mmol/L (8-16); CALCIUM, TOTAL 9.1 mg/dL (8.8-10.5); CARBON DIOXIDE 35 mmol/L (22-29); CHLORIDE 109 mmol/L (98-107); CREATININE 0.87 mg/dL (0.60-1.30); GLOMERULAR FILTR. RATE CALC > 60 mL/min (>60); GLUCOSE,RANDOM 86 mg/dL (70-110); POTASSIUM 3.6 mmol/L (3.5-5.1); SODIUM SERUM 148 mmol/L (136-145); UREA NITROGEN, BLOOD 16 mg/dL (7-18)
[2021-11-16 16:59] VITALS: BP 120/71
[2021-11-16] MEDS: OLANZapine 10 MG RAPDIS TABLET PO SCH (21:00)
[2021-11-17] MEDS: FERROUS SULFATE 325 MG EC TABLET PO SCH ×3 (06:40→16:33)
[2021-11-17 07:50] VITALS: BP 108/64
[2021-11-17 08:42] VITALS: BP 108/64
[2021-11-17] MEDS: THIAMINE 100 MG TABLET PO SCH (11:21)
[2021-11-17] MEDS: MULTIVITAMINS WITH MINERALS, THERAPEUTIC TABLET PO SCH (11:21)
[2021-11-17] MEDS: OMEGA-3/DHA/EPA/FISH OIL 1,000 MG CAPSULE PO SCH (11:21)
[2021-11-17] MEDS: LEVOFLOXACIN 500 MG TABLET PO SCH (11:22)
[2021-11-17] MEDS: SERTRALINE HCL 100 MG TABLET PO SCH ×2 (11:22→16:33)
[2021-11-17] MEDS: RisperiDONE 1 MG TABLET PO SCH ×2 (11:22→20:47)
[2021-11-17] MEDS: OLANZapine 5 MG RAPDIS TABLET PO SCH (11:22)
[2021-11-17 16:59] VITALS: BP 99/70
[2021-11-17] MEDS: OLANZapine 10 MG RAPDIS TABLET PO SCH (20:47)
[2021-11-18] MEDS: FERROUS SULFATE 325 MG EC TABLET PO SCH ×3 (06:38→16:30)
[2021-11-18 08:10] VITALS: BP 104/73
[2021-11-18] MEDS: LEVOFLOXACIN 500 MG TABLET PO SCH (08:58)
[2021-11-18] MEDS: MULTIVITAMINS WITH MINERALS, THERAPEUTIC TABLET PO SCH (08:59)
[2021-11-18] MEDS: OMEGA-3/DHA/EPA/FISH OIL 1,000 MG CAPSULE PO SCH (08:59)
[2021-11-18] MEDS: OLANZapine 5 MG RAPDIS TABLET PO SCH (08:59)
[2021-11-18] MEDS: SERTRALINE HCL 100 MG TABLET PO SCH ×2 (08:59→16:30)
[2021-11-18] MEDS: THIAMINE 100 MG TABLET PO SCH (09:00)
[2021-11-18] MEDS: RisperiDONE 1 MG TABLET PO SCH ×2 (09:00→21:01)
[2021-11-18 16:36] VITALS: BP 109/72
[2021-11-18] MEDS: OLANZapine 10 MG RAPDIS TABLET PO SCH (21:00)
[2021-11-19] MEDS: FERROUS SULFATE 325 MG EC TABLET PO SCH ×3 (06:39→16:20)
[2021-11-19 10:00] VITALS: BP 98/62
[2021-11-19] MEDS: SERTRALINE HCL 100 MG TABLET PO SCH ×2 (12:52→16:20)
[2021-11-19] MEDS: RisperiDONE 1 MG TABLET PO SCH ×2 (12:52→20:51)
[2021-11-19] MEDS: OLANZapine 5 MG RAPDIS TABLET PO SCH (12:53)
[2021-11-19] MEDS: MULTIVITAMINS WITH MINERALS, THERAPEUTIC TABLET PO SCH (12:53)
[2021-11-19] MEDS: OMEGA-3/DHA/EPA/FISH OIL 1,000 MG CAPSULE PO SCH (12:53)
[2021-11-19] MEDS: THIAMINE 100 MG TABLET PO SCH (12:53)
[2021-11-19] MEDS: LEVOFLOXACIN 500 MG TABLET PO SCH (12:53)
[2021-11-19] MEDS: OLANZapine 10 MG RAPDIS TABLET PO SCH (20:50)
[2021-11-20] MEDS: FERROUS SULFATE 325 MG EC TABLET PO SCH ×3 (06:38→17:31)
[2021-11-20 08:10] VITALS: BP 120/81
[2021-11-20] MEDS: LEVOFLOXACIN 500 MG TABLET PO SCH (08:53)
[2021-11-20] MEDS: THIAMINE 100 MG TABLET PO SCH (08:53)
[2021-11-20] MEDS: SERTRALINE HCL 100 MG TABLET PO SCH ×2 (08:54→16:22)
[2021-11-20] MEDS: MULTIVITAMINS WITH MINERALS, THERAPEUTIC TABLET PO SCH (08:54)
[2021-11-20] MEDS: OMEGA-3/DHA/EPA/FISH OIL 1,000 MG CAPSULE PO SCH (08:54)
[2021-11-20] MEDS: RisperiDONE 1 MG TABLET PO SCH ×2 (08:54→20:48)
[2021-11-20] MEDS: OLANZapine 5 MG RAPDIS TABLET PO SCH (08:55)
[2021-11-20 16:30] VITALS: BP 115/77
[2021-11-20] MEDS: OLANZapine 10 MG RAPDIS TABLET PO SCH (20:52)
[2021-11-21] MEDS: FERROUS SULFATE 325 MG EC TABLET PO SCH ×3 (06:56→16:18)
[2021-11-21 08:10] VITALS: BP 124/74
[2021-11-21 08:12] LABS: ANION GAP 5 mmol/L (8-16); CALCIUM, TOTAL 8.4 mg/dL (8.8-10.5); CARBON DIOXIDE 36 mmol/L (22-29); CHLORIDE 108 mmol/L (98-107); CHOL/HDL RATIO 3.2 (3.9-5.7); CHOLESTEROL 141 mg/dL (131-200); CREATININE 0.88 mg/dL (0.60-1.30); GLOMERULAR FILTR. RATE CALC > 60 mL/min (>60); GLUCOSE,RANDOM 81 mg/dL (70-110); HDL CHOLESTEROL 44 mg/dL (40-60); LDL CHOL (CALC.) 83 mg/dL (0-130); POTASSIUM 3.1 mmol/L (3.5-5.1); SODIUM SERUM 149 mmol/L (136-145); TRIGLYCERIDES 70 mg/dL (15-150); UREA NITROGEN, BLOOD 19 mg/dL (7-18)
[2021-11-21] MEDS: THIAMINE 100 MG TABLET PO SCH (09:25)
[2021-11-21] MEDS: SERTRALINE HCL 100 MG TABLET PO SCH ×2 (09:27→16:18)
[2021-11-21] MEDS: OMEGA-3/DHA/EPA/FISH OIL 1,000 MG CAPSULE PO SCH (09:27)
[2021-11-21] MEDS: RisperiDONE 1 MG TABLET PO SCH ×2 (09:27→20:14)
[2021-11-21] MEDS: MULTIVITAMINS WITH MINERALS, THERAPEUTIC TABLET PO SCH (09:27)
[2021-11-21] MEDS: OLANZapine 5 MG RAPDIS TABLET PO SCH (09:27)
[2021-11-21] MEDS ORDERED: POTASSIUM CHLORIDE 20 MEQ ER TABLET PO ONE (11:45)
[2021-11-21 16:31] VITALS: BP 104/65
[2021-11-21] MEDS: OLANZapine 10 MG RAPDIS TABLET PO SCH (20:16)
[2021-11-22] MEDS: FERROUS SULFATE 325 MG EC TABLET PO SCH ×3 (06:32→16:20)
[2021-11-22 08:00] VITALS: BP 118/75
[2021-11-22] MEDS: OMEGA-3/DHA/EPA/FISH OIL 1,000 MG CAPSULE PO SCH (08:42)
[2021-11-22] MEDS: MULTIVITAMINS WITH MINERALS, THERAPEUTIC TABLET PO SCH (08:42)
[2021-11-22] MEDS: SERTRALINE HCL 100 MG TABLET PO SCH ×2 (08:43→16:20)
[2021-11-22] MEDS: THIAMINE 100 MG TABLET PO SCH (08:43)
[2021-11-22] MEDS: OLANZapine 5 MG RAPDIS TABLET PO SCH (08:43)
[2021-11-22] MEDS: RisperiDONE 1 MG TABLET PO SCH ×2 (08:43→20:23)
[2021-11-22 10:47] LABS: COVID AG,FIA SOURCE NASOPHARYNGEAL
[2021-11-22 16:18] VITALS: BP 101/65
[2021-11-22] MEDS: OLANZapine 10 MG RAPDIS TABLET PO SCH (20:24)
[2021-11-23] MEDS: FERROUS SULFATE 325 MG EC TABLET PO SCH ×3 (06:37→16:30)
[2021-11-23 08:19] VITALS: BP 136/85
[2021-11-23] MEDS: OMEGA-3/DHA/EPA/FISH OIL 1,000 MG CAPSULE PO SCH (08:49)
[2021-11-23] MEDS: MULTIVITAMINS WITH MINERALS, THERAPEUTIC TABLET PO SCH (08:49)
[2021-11-23] MEDS: SERTRALINE HCL 100 MG TABLET PO SCH ×2 (08:50→16:30)
[2021-11-23] MEDS: OLANZapine 5 MG RAPDIS TABLET PO SCH (08:50)
[2021-11-23] MEDS: THIAMINE 100 MG TABLET PO SCH (08:50)
[2021-11-23] MEDS: RisperiDONE 1 MG TABLET PO SCH ×2 (08:52→20:35)
[2021-11-23 09:23] LABS: ANION GAP 6 mmol/L (8-16); CALCIUM, TOTAL 8.9 mg/dL (8.8-10.5); CARBON DIOXIDE 34 mmol/L (22-29); CHLORIDE 106 mmol/L (98-107); CREATININE 0.93 mg/dL (0.60-1.30); GLOMERULAR FILTR. RATE CALC > 60 mL/min (>60); GLUCOSE,RANDOM 96 mg/dL (70-110); POTASSIUM 3.3 mmol/L (3.5-5.1); SODIUM SERUM 146 mmol/L (136-145); UREA NITROGEN, BLOOD 17 mg/dL (7-18)
[2021-11-23] MEDS ORDERED: POTASSIUM CHLORIDE 20 MEQ ER TABLET PO ONE (12:00)
[2021-11-23 16:03] VITALS: BP 100/60
[2021-11-23] MEDS: OLANZapine 10 MG RAPDIS TABLET PO SCH (20:36)
[2021-11-24] MEDS: FERROUS SULFATE 325 MG EC TABLET PO SCH ×3 (06:46→16:21)
[2021-11-24 09:58] VITALS: BP 124/79
[2021-11-24] MEDS: THIAMINE 100 MG TABLET PO SCH (12:37)
[2021-11-24] MEDS: OLANZapine 5 MG RAPDIS TABLET PO SCH (12:38)
[2021-11-24] MEDS: SERTRALINE HCL 100 MG TABLET PO SCH ×2 (12:38→16:21)
[2021-11-24] MEDS: RisperiDONE 1 MG TABLET PO SCH ×2 (12:38→20:45)
[2021-11-24] MEDS: OMEGA-3/DHA/EPA/FISH OIL 1,000 MG CAPSULE PO SCH (12:38)
[2021-11-24] MEDS: MULTIVITAMINS WITH MINERALS, THERAPEUTIC TABLET PO SCH (12:38)
[2021-11-24 16:18] VITALS: BP 107/62
[2021-11-24] MEDS: OLANZapine 10 MG RAPDIS TABLET PO SCH (20:46)
[2021-11-25] MEDS: FERROUS SULFATE 325 MG EC TABLET PO SCH ×3 (06:49→16:06)
[2021-11-25 09:46] VITALS: BP 97/57
[2021-11-25] MEDS: OMEGA-3/DHA/EPA/FISH OIL 1,000 MG CAPSULE PO SCH (10:23)
[2021-11-25] MEDS: MULTIVITAMINS WITH MINERALS, THERAPEUTIC TABLET PO SCH (10:23)
[2021-11-25] MEDS: RisperiDONE 1 MG TABLET PO SCH ×2 (10:23→20:03)
[2021-11-25] MEDS: OLANZapine 5 MG RAPDIS TABLET PO SCH (10:24)
[2021-11-25] MEDS: THIAMINE 100 MG TABLET PO SCH (10:24)
[2021-11-25] MEDS: SERTRALINE HCL 100 MG TABLET PO SCH ×2 (10:24→16:06)
[2021-11-25 16:16] VITALS: BP 105/75
[2021-11-25] MEDS: OLANZapine 10 MG RAPDIS TABLET PO SCH ×2 (20:03→20:53)
[2021-11-26] MEDS: FERROUS SULFATE 325 MG EC TABLET PO SCH ×3 (06:48→17:50)
[2021-11-26] MEDS: THIAMINE 100 MG TABLET PO SCH (08:29)
[2021-11-26] MEDS: OMEGA-3/DHA/EPA/FISH OIL 1,000 MG CAPSULE PO SCH (08:29)
[2021-11-26] MEDS: RisperiDONE 1 MG TABLET PO SCH ×2 (08:29→20:47)
[2021-11-26] MEDS: MULTIVITAMINS WITH MINERALS, THERAPEUTIC TABLET PO SCH (08:29)
[2021-11-26] MEDS: OLANZapine 5 MG RAPDIS TABLET PO SCH (08:30)
[2021-11-26] MEDS: SERTRALINE HCL 100 MG TABLET PO SCH ×2 (08:30→17:00)
[2021-11-26 10:28] VITALS: BP 113/83
[2021-11-26 17:14] VITALS: BP 97/81
[2021-11-26] MEDS: OLANZapine 10 MG RAPDIS TABLET PO SCH (20:47)
[2021-11-27] MEDS: FERROUS SULFATE 325 MG EC TABLET PO SCH ×3 (06:48→17:01)
[2021-11-27 08:00] VITALS: BP 100/64
[2021-11-27] MEDS: MULTIVITAMINS WITH MINERALS, THERAPEUTIC TABLET PO SCH (08:43)
[2021-11-27] MEDS: OMEGA-3/DHA/EPA/FISH OIL 1,000 MG CAPSULE PO SCH (08:43)
[2021-11-27] MEDS: THIAMINE 100 MG TABLET PO SCH (08:43)
[2021-11-27] MEDS: SERTRALINE HCL 100 MG TABLET PO SCH ×2 (08:43→17:01)
[2021-11-27] MEDS: OLANZapine 5 MG RAPDIS TABLET PO SCH (08:43)
[2021-11-27] MEDS: RisperiDONE 1 MG TABLET PO SCH ×2 (08:43→20:27)
[2021-11-27 17:05] VITALS: BP 120/69
[2021-11-27] MEDS: OLANZapine 10 MG RAPDIS TABLET PO SCH (20:42)
[2021-11-28] MEDS: FERROUS SULFATE 325 MG EC TABLET PO SCH ×3 (06:30→16:31)
[2021-11-28] MEDS: RisperiDONE 1 MG TABLET PO SCH ×2 (09:18→20:55)
[2021-11-28] MEDS: THIAMINE 100 MG TABLET PO SCH (09:18)
[2021-11-28] MEDS: OMEGA-3/DHA/EPA/FISH OIL 1,000 MG CAPSULE PO SCH (09:18)
[2021-11-28] MEDS: MULTIVITAMINS WITH MINERALS, THERAPEUTIC TABLET PO SCH (09:19)
[2021-11-28] MEDS: SERTRALINE HCL 100 MG TABLET PO SCH ×2 (09:19→16:31)
[2021-11-28] MEDS: OLANZapine 5 MG RAPDIS TABLET PO SCH (09:19)
[2021-11-28 12:50] VITALS: BP 86/51
[2021-11-28 16:28] VITALS: BP 106/71
[2021-11-28] MEDS: OLANZapine 10 MG RAPDIS TABLET PO SCH (20:55)
[2021-11-29] MEDS: FERROUS SULFATE 325 MG EC TABLET PO SCH ×3 (06:50→16:11)
[2021-11-29 07:10] LABS: ANION GAP 4 mmol/L (8-16); CALCIUM, TOTAL 8.5 mg/dL (8.8-10.5); CARBON DIOXIDE 33 mmol/L (22-29); CHLORIDE 109 mmol/L (98-107); CREATININE 0.87 mg/dL (0.60-1.30); GLOMERULAR FILTR. RATE CALC > 60 mL/min (>60); GLUCOSE,RANDOM 92 mg/dL (70-110); POTASSIUM 3.3 mmol/L (3.5-5.1); SODIUM SERUM 146 mmol/L (136-145); UREA NITROGEN, BLOOD 18 mg/dL (7-18)
[2021-11-29] MEDS: THIAMINE 100 MG TABLET PO SCH (08:00)
[2021-11-29] MEDS: RisperiDONE 1 MG TABLET PO SCH ×2 (08:00→20:09)
[2021-11-29] MEDS: SERTRALINE HCL 100 MG TABLET PO SCH ×2 (08:00→16:11)
[2021-11-29] MEDS: OLANZapine 5 MG RAPDIS TABLET PO SCH (08:00)
[2021-11-29] MEDS: OMEGA-3/DHA/EPA/FISH OIL 1,000 MG CAPSULE PO SCH (08:00)
[2021-11-29] MEDS: MULTIVITAMINS WITH MINERALS, THERAPEUTIC TABLET PO SCH (08:00)
[2021-11-29] MEDS ORDERED: POTASSIUM CHLORIDE 20 MEQ ER TABLET PO ONE (09:15)
[2021-11-29 10:08] VITALS: BP 97/65
[2021-11-29 15:12] LABS: COVID AG,FIA SOURCE NASOPHARYNGEAL
[2021-11-29 16:42] VITALS: BP 120/78
[2021-11-29] MEDS: OLANZapine 10 MG RAPDIS TABLET PO SCH ×2 (20:09→20:25)
[2021-11-30 04:57] VITALS: BP 97/67
[2021-11-30] MEDS: FERROUS SULFATE 325 MG EC TABLET PO SCH ×3 (06:55→16:34)
[2021-11-30] MEDS: THIAMINE 100 MG TABLET PO SCH (08:43)
[2021-11-30] MEDS: OMEGA-3/DHA/EPA/FISH OIL 1,000 MG CAPSULE PO SCH (08:43)
[2021-11-30] MEDS: MULTIVITAMINS WITH MINERALS, THERAPEUTIC TABLET PO SCH (08:43)
[2021-11-30] MEDS: RisperiDONE 1 MG TABLET PO SCH ×2 (08:43→21:03)
[2021-11-30] MEDS: SERTRALINE HCL 100 MG TABLET PO SCH ×2 (08:44→16:34)
[2021-11-30] MEDS: OLANZapine 5 MG RAPDIS TABLET PO SCH (08:44)
[2021-11-30 10:12] VITALS: BP 143/89
[2021-11-30 17:15] VITALS: BP 105/75
[2021-11-30] MEDS: OLANZapine 10 MG RAPDIS TABLET PO SCH (21:00)
[2021-12-01] MEDS: FERROUS SULFATE 325 MG EC TABLET PO SCH ×3 (06:45→17:33)
[2021-12-01 08:00] VITALS: BP 107/65
[2021-12-01] MEDS: RisperiDONE 1 MG TABLET PO SCH ×2 (08:58→21:00)
[2021-12-01] MEDS: SERTRALINE HCL 100 MG TABLET PO SCH ×2 (08:59→17:00)
[2021-12-01] MEDS: MULTIVITAMINS WITH MINERALS, THERAPEUTIC TABLET PO SCH (08:59)
[2021-12-01] MEDS: THIAMINE 100 MG TABLET PO SCH (08:59)
[2021-12-01] MEDS: OMEGA-3/DHA/EPA/FISH OIL 1,000 MG CAPSULE PO SCH (08:59)
[2021-12-01] MEDS: OLANZapine 5 MG RAPDIS TABLET PO SCH (08:59)
[2021-12-01 16:45] VITALS: BP 115/76
[2021-12-01] MEDS: OLANZapine 10 MG RAPDIS TABLET PO SCH (21:24)
[2021-12-02] MEDS: FERROUS SULFATE 325 MG EC TABLET PO SCH ×3 (07:01→17:31)
[2021-12-02 08:00] VITALS: BP 95/65
[2021-12-02] MEDS: OMEGA-3/DHA/EPA/FISH OIL 1,000 MG CAPSULE PO SCH (08:33)
[2021-12-02] MEDS: OLANZapine 5 MG RAPDIS TABLET PO SCH (08:33)
[2021-12-02] MEDS: MULTIVITAMINS WITH MINERALS, THERAPEUTIC TABLET PO SCH (08:33)
[2021-12-02] MEDS: THIAMINE 100 MG TABLET PO SCH (08:33)
[2021-12-02] MEDS: SERTRALINE HCL 100 MG TABLET PO SCH ×2 (08:33→17:00)
[2021-12-02] MEDS: RisperiDONE 1 MG TABLET PO SCH ×2 (08:33→21:00)
[2021-12-02 16:12] VITALS: BP 121/80
[2021-12-02] MEDS: OLANZapine 10 MG RAPDIS TABLET PO SCH (20:59)
[2021-12-03] MEDS: FERROUS SULFATE 325 MG EC TABLET PO SCH ×3 (06:42→16:09)
[2021-12-03 08:11] VITALS: BP 100/64
[2021-12-03] MEDS: OMEGA-3/DHA/EPA/FISH OIL 1,000 MG CAPSULE PO SCH (09:28)
[2021-12-03] MEDS: MULTIVITAMINS WITH MINERALS, THERAPEUTIC TABLET PO SCH (09:28)
[2021-12-03] MEDS: THIAMINE 100 MG TABLET PO SCH (09:28)
[2021-12-03] MEDS: RisperiDONE 1 MG TABLET PO SCH ×2 (09:28→20:27)
[2021-12-03] MEDS: OLANZapine 5 MG RAPDIS TABLET PO SCH (09:28)
[2021-12-03] MEDS: SERTRALINE HCL 100 MG TABLET PO SCH ×2 (09:28→16:08)
[2021-12-03 16:22] VITALS: BP 126/88
[2021-12-03] MEDS: OLANZapine 10 MG RAPDIS TABLET PO SCH ×2 (20:27→20:55)
[2021-12-04 03:38] VITALS: BP 103/64
[2021-12-04] MEDS: FERROUS SULFATE 325 MG EC TABLET PO SCH ×2 (06:35→12:22)
[2021-12-04 08:10] VITALS: BP 110/66
[2021-12-04] MEDS ORDERED: OLAN5TAB94 PO (08:54)
[2021-12-04] MEDS ORDERED: THIA100T80 PO (08:54)
[2021-12-04] MEDS ORDERED: FERR-89 PO (08:54)
[2021-12-04] MEDS: THIAMINE 100 MG TABLET PO SCH (09:16)
[2021-12-04] MEDS: RisperiDONE 1 MG TABLET PO SCH (09:16)
[2021-12-04] MEDS: OLANZapine 5 MG RAPDIS TABLET PO SCH (09:16)
[2021-12-04] MEDS: SERTRALINE HCL 100 MG TABLET PO SCH (09:16)
[2021-12-04] MEDS: OMEGA-3/DHA/EPA/FISH OIL 1,000 MG CAPSULE PO SCH (09:16)
[2021-12-04] MEDS: MULTIVITAMINS WITH MINERALS, THERAPEUTIC TABLET PO SCH (09:18)
[2021-12-04 12:30] VITALS: BP 114/66
== END 2021-12-04 13:15 | disposition home or self-care (01) | DRG 750 ==
LOC: EMS 12:57 → 3EI 10-20 20:00
PROVIDERS: ADMIT Psychiatry & Neurology Child & Adolescent Psychiatry; ATTEND Psychiatry & Neurology Child & Adolescent Psychiatry
DX: F25.1 Schizoaffective disorder, depressive type (principal); E43 Unspecified severe protein-calorie malnutrition; E87.0 Hyperosmolality and hypernatremia; N17.9 Acute kidney failure, unspecified; E87.2 Acidosis; Z20.822 Contact with and (suspected) exposure to COVID-19; F41.9 Anxiety disorder, unspecified; E80.6 Other disorders of bilirubin metabolism; Z66 Do not resuscitate; E78.5 Hyperlipidemia, unspecified; F31.9 Bipolar disorder, unspecified; Z59.00 Homelessness unspecified; Z91.14 Patient's other noncompliance with medication regimen; Z68.1 Body mass index [BMI] 19.9 or less, adult; Z88.0 Allergy status to penicillin; Z79.899 Other long term (current) drug therapy
CPT/HCPCS: 80048; 80053; 80061; 81001; 83735; 84100; 84132; 85025; 87077; 87086; 87186; 93005; 93970; 99285; G0480; G0481; J7030